=== PATIENT | male | born 1970 | race African-American/Black ===

== ENCOUNTER 2017-01-22 00:01 | Inpatient (IN) ==
[2017-01-22] MEDS ORDERED: *HR* HYDROcodone/Acet 5/325 mg TABLET PO ONE (00:56)
[2017-01-22] MEDS ORDERED: Ondansetron ODT 4 MG TAB.RAPDIS SL ONE (00:56)
[2017-01-22 01:20] LABS: Basophils # 0.1 K/mcL (0.0-0.2); Basophils % 0.3 %; Eosinophils % 0.1 %; Hematocrit 40.7 % (37.5-50.1); Hemoglobin 12.9 g/dL (12.9-16.9); Immature Granulocytes % 0.8 % (0-4); Immature Platelets 4.1 % (1.1-6.1); Lymphocytes # 0.6 K/mcL (0.6-4.6); Lymphocytes % 3.4 %; Mean Corpuscular HGB Conc 31.7 g/dL (31.6-35.5); Mean Corpuscular Hemoglobin 25.5 pg (28.0-33.3); Mean Corpuscular Volume 80.4 fL (83.0-100.0); Monocytes # 0.9 K/mcL (0.0-1.3); Monocytes % 5.3 %; Neutrophils # 15.5 K/mcL (1.6-8.9); Platelet Count 233 K/mcL (140-400); Red Blood Count 5.06 M/mcL (4.19-5.50); Red Cell Distribution Width 17.8 % (11.5-14.5); Segmented Neutrophils % 90.1 %
[2017-01-22 01:33] LABS: Calcium 8.9 mg/dL (8.6-10.8); Potassium 4.2 mEq/L (3.5-4.5)
[2017-01-22 01:35] LABS: Bilirubin,Urine Moderate (Negative); Blood,Urine Large (Negative); Clarity,Urine Turbid (Clear); Color,Urine Dark Yellow (Yellow); Glucose,Urine (UA) >=1000 mg/dL (Normal); Ketones,Urine Trace mg/dL (Negative); Leukocyte Esterase,Urine Large (Negative); Nitrite,Urine Positive (Negative); PH,Urine 5.5 pH Units (5.0-8.0); Protein,Urine 100 mg/dL (Neg-Trace); Specific Gravity,Urine 1.025 (1.010-1.025); Urobilinogen,Urine Normal (Normal)
[2017-01-22 01:42] LABS: Bacteria,Urine Many per hpf (None-Few); WBC,Urine TNTC per hpf (0-3)
[2017-01-22 01:43] LABS: RBC,Urine Present per hpf (0-3)
[2017-01-22 01:44] LABS: Squamous Epithelial Cell,Urine Present per lpf (None-Few)
[2017-01-22] MEDS ORDERED: 0.9 % Sodium Chloride 1,000 ML IVC ONE ×3 (02:55→05:20)
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
[2017-01-22] MEDS ORDERED: *HR* Morphine 2 MG/ML SYRINGE IVP ONE (03:31)
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
[2017-01-22] MEDS ORDERED: Naloxone 0.4 MG/ML INJ IVP PRN (05:18)
[2017-01-22] MEDS ORDERED: *HR* Promethazine 25 MG/ML VIAL IVP PRN ×2 (05:21→13:54)
[2017-01-22] MEDS ORDERED: D5% in Water 1,000 ML IVC PRN (05:22)
[2017-01-22] MEDS ORDERED: Dextrose Gel 15 GM PO PRN ×2 (05:22)
[2017-01-22] MEDS ORDERED: *HR* Dextrose 50 % in Water (Syg) 50 ML SYRINGE IVP PRN (05:22)
[2017-01-22] MEDS ORDERED: 0.9 % Sodium Chloride 1,000 ML IVC SCH ×3 (05:30→16:02)
[2017-01-22] MEDS ORDERED: *HR* Heparin 5,000 UNIT/ML VIAL SQ SCH (06:00)
[2017-01-22] MEDS: Insulin LISPRO 300 UNITS/3 ML VIAL SQ SCH ×5 (07:09→20:52)
[2017-01-22] MEDS: Gabapentin 300 MG CAPSULE PO SCH ×2 (07:46→20:51)
[2017-01-22] MEDS: *HR* OxyCODONE/APAP 10/325 TABLET PO PRN ×3 (08:01→20:54)
[2017-01-22] MEDS ORDERED: *HR* Rivaroxaban 15 MG TABLET PO SCH (09:00)
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
[2017-01-22] MEDS ORDERED: 0.9 % Sodium Chloride 500 ML IVC ONE ×2 (14:27→15:15)
[2017-01-22] MEDS ORDERED: 0.9 % Sodium Chloride 500 ML ONE (14:27)
[2017-01-22] MEDS: *HR* Promethazine 25 MG/ML VIAL IVP PRN (15:25)
--- NOTE | 2017-01-22 20:04 | Event Note ---
Date of Encounter: 01/22/17 Time of Encounter: 20:03 Called due to E. coli in blood x 2. - Vitals noted, no hypotension. On ceftriaxone, continue.
[2017-01-22 20:21] LABS: Acinetobacter baumannii by PCR Not Detected (Not Detect); Candida albicans by PCR Not Detected (Not Detect); Candida glabrata by PCR Not Detected (Not Detect); Candida krusei by PCR Not Detected (Not Detect); Candida parapsilosis by PCR Not Detected (Not Detect); Candida tropicalis by PCR Not Detected (Not Detect); Enterococcus by PCR Not Detected (Not Detect); Escherichia coli by PCR ***DETECTED*** (Not Detect); Klebsiella oxytoca by PCR Not Detected (Not Detect); Klebsiella pneumoniae by PCR Not Detected (Not Detect); Pseudomonas aeruginosa by PCR Not Detected (Not Detect); Serratia marcescens by PCR Not Detected (Not Detect); Staphylococcus aureus by PCR Not Detected (Not Detect); Streptococcus agalactiae(B)PCR Not Detected (Not Detect); Streptococcus by PCR Not Detected (Not Detect); Streptococcus pneumoniae PCR Not Detected (Not Detect); Streptococcus pyogenes (A) PCR Not Detected (Not Detect); blaKPC Carbapenem-Resist Gene Not Detected (Not Detect); mecA Methicillin-Resist Gene Not Detected (Not Detect); vanA/B Vancomycin-Resist Genes Not Detected (Not Detect)
[2017-01-22] MEDS: 0.9 % Sodium Chloride 1,000 ML IVC SCH (21:09)
[2017-01-23] MEDS: *HR* Morphine 2 MG/ML SYRINGE IVP PRN ×2 (00:35→19:43)
[2017-01-23] MEDS: Acetaminophen 325 MG TABLET PO PRN ×2 (04:24→20:42)
[2017-01-23 04:51] LABS: Basophils % 0.2 %; Eosinophils % 0.3 %; Hematocrit 41.8 % (37.5-50.1); Hemoglobin 13.1 g/dL (12.9-16.9); Immature Granulocytes % 0.5 % (0-4); Lymphocytes # 0.7 K/mcL (0.6-4.6); Lymphocytes % 6.1 %; Mean Corpuscular HGB Conc 31.3 g/dL (31.6-35.5); Mean Corpuscular Hemoglobin 25.4 pg (28.0-33.3); Mean Corpuscular Volume 81.2 fL (83.0-100.0); Mean Platelet Volume 11.2 fL (9.4-12.4); Monocytes # 0.6 K/mcL (0.0-1.3); Monocytes % 5.4 %; Neutrophils # 10.4 K/mcL (1.6-8.9); Platelet Count 192 K/mcL (140-400); Red Blood Count 5.15 M/mcL (4.19-5.50); Red Cell Distribution Width 18.2 % (11.5-14.5); Segmented Neutrophils % 87.5 %
[2017-01-23 05:08] LABS: Alanine Aminotransferase 43 Units/L (0-55); Albumin 2.4 g/dL (3.5-5.0); Albumin/Globulin Ratio 0.5 (1.1-2.2); Alkaline Phosphatase 100 Units/L (38-126); Aspartate Amino Transferase 61 Units/L (5-34); BUN/Creatinine Ratio 23 (6-26); Bilirubin,Total 0.7 mg/dL (0.2-1.2); Blood Urea Nitrogen 34 mg/dL (8-26); Calcium 8.5 mg/dL (8.6-10.8); Carbon Dioxide 15 mEq/L (19-29); Chloride 109 mEq/L (98-109); Globulin 4.8 g/dL (2.4-3.5); Glucose 132 mg/dL (70-99); Magnesium 1.6 mg/dL (1.6-2.6); Osmolality,Calculated 291 (280-300); Phosphorous 3.1 mg/dL (2.3-4.7); Sodium 136 mEq/L (136-145); Total Protein 7.2 g/dL (6.0-8.3); eGFR For African Americans > 60 (> 60); eGFR For Non-African Americans 50 (> 60)
[2017-01-23 05:11] LABS: Potassium 5.5 mEq/L (3.5-4.5)
[2017-01-23] MEDS: 0.9 % Sodium Chloride 1,000 ML IVC SCH ×2 (05:20→15:10)
[2017-01-23] MEDS ORDERED: 0.9 % Sodium Chloride 1,000 ML IVC ONE (05:34)
[2017-01-23] MEDS: Gabapentin 300 MG CAPSULE PO SCH ×2 (09:02→20:42)
[2017-01-23] MEDS: Insulin LISPRO 300 UNITS/3 ML VIAL SQ SCH ×4 (09:02→21:30)
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
[2017-01-23 18:07] LABS: BUN/Creatinine Ratio 21 (6-26); Blood Urea Nitrogen 32 mg/dL (8-26); Calcium 8.4 mg/dL (8.6-10.8); Carbon Dioxide 20 mEq/L (19-29); Chloride 109 mEq/L (98-109); Glucose 136 mg/dL (70-99); Osmolality,Calculated 293 (280-300); Sodium 137 mEq/L (136-145); eGFR For African Americans > 60 (> 60); eGFR For Non-African Americans 51 (> 60)
[2017-01-23 18:14] LABS: Potassium 4.2 mEq/L (3.5-4.5)
[2017-01-23] MEDS: *HR* Promethazine 25 MG/ML VIAL IVP PRN (19:51)
[2017-01-23] MEDS ORDERED: Ibuprofen 600 MG TABLET PO ONE (22:05)
[2017-01-24] MEDS: 0.9 % Sodium Chloride 1,000 ML IVC SCH (00:10)
[2017-01-24 06:20] LABS: Basophils % 0.3 %; Eosinophils # 0.1 K/mcL (0.0-0.6); Eosinophils % 0.5 %; Hematocrit 36.5 % (37.5-50.1); Hemoglobin 11.7 g/dL (12.9-16.9); Immature Granulocytes % 0.4 % (0-4); Lymphocytes # 1.1 K/mcL (0.6-4.6); Lymphocytes % 9.9 %; Mean Corpuscular HGB Conc 32.1 g/dL (31.6-35.5); Mean Corpuscular Hemoglobin 26.1 pg (28.0-33.3); Mean Corpuscular Volume 81.5 fL (83.0-100.0); Neutrophils # 8.8 K/mcL (1.6-8.9); Platelet Count 195 K/mcL (140-400); Red Blood Count 4.48 M/mcL (4.19-5.50); Red Cell Distribution Width 18.7 % (11.5-14.5); Segmented Neutrophils % 79.9 %
[2017-01-24 06:44] LABS: BUN/Creatinine Ratio 21 (6-26); Blood Urea Nitrogen 31 mg/dL (8-26); Calcium 8.2 mg/dL (8.6-10.8); Carbon Dioxide 19 mEq/L (19-29); Chloride 107 mEq/L (98-109); Glucose 133 mg/dL (70-99); Osmolality,Calculated 288 (280-300); Potassium 4.1 mEq/L (3.5-4.5); Sodium 135 mEq/L (136-145); eGFR For African Americans > 60 (> 60); eGFR For Non-African Americans 52 (> 60)
[2017-01-24] MEDS: Insulin LISPRO 300 UNITS/3 ML VIAL SQ SCH ×2 (07:30→11:51)
[2017-01-24] MEDS: Gabapentin 300 MG CAPSULE PO SCH (08:56)
[2017-01-24] MEDS: *HR* OxyCODONE/APAP 10/325 TABLET PO PRN (11:43)
--- NOTE | 2017-01-24 11:48 | Internal Med Progress Note ---
Date of Encounter: 01/24/17 Time of Encounter: 11:48 - Constitutional Vitals: Temp Pulse Resp BP Pulse Ox 98.3 F 107 18 111/70 94 01/24/17 10:41 01/24/17 10:41 01/24/17 10:41 01/24/17 10:41 01/24/17 10:41 General appearance: Present: A&O X 3, pleasant, obese, answers questions appropriately Internal Medicine: Result - Labs CBC & Chem 7: 01/24/17 05:19 01/24/17 05:19 Labs: Short CBC 01/24/17 Range/Units 05:19 WBC 11.0 (4.3-11.1) K/mcL Hgb 11.7 L (12.9-16.9) g/dL Hct 36.5 L (37.5-50.1) % Plt Count 195 (140-400) K/mcL Neutrophils # 8.8 (1.6-8.9) K/mcL BMP 01/23/17 01/24/17 17:30 05:19 Sodium 137 135 L Potassium 4.2 D 4.1 Chloride 109 107 Carbon Dioxide 20 19 BUN 32 H 31 H Creatinine 1.49 H 1.45 H Glucose 136 H 133 H Calcium 8.4 L 8.2 L Consult Discharge Plan - Plan Referrals: Leida Floyd MD [Non-Partnered Physician] -
[2017-01-24] MEDS ORDERED: Acetaminophen 325 MG TABLET PO PRN (11:59)
[2017-01-24] MEDS ORDERED: *HR* OxyCODONE/APAP 10/325 TABLET PO PRN (12:00)
[2017-01-24 14:47] VITALS: BP 106/70
--- NOTE | 2017-01-24 16:09 | Discharge Summary ---
Date of Encounter: 01/24/17 Time of Encounter: 10:15 - Discharge Diagnosis (1) Sepsis Priority: Primary Status: Acute Comments: Sepsis present on admission secondary to UTI - now improved Patient has been on IV fluids and IV Rocephin Urine culture and blood culture initially positive for pansensitive Escherichia coli Repeat blood cultures - no growth Discharged home on Levaquin Advised to follow-up with primary care physician, advised to return if symptoms worsen Qualifiers: Sepsis type: sepsis due to unspecified organism Qualified Code(s): A41.9 - Sepsis, unspecified organism (2) UTI (urinary tract infection) Priority: Primary Status: Acute Comments: UTI present on admission, blood culture and urine culture positive for pansensitive Escherichia coli Being discharged on Levaquin Qualifiers: Urinary tract infection type: acute cystitis Hematuria presence: with hematuria Qualified Code(s): N30.01 - Acute cystitis with hematuria (3) SHE (acute kidney injury) Priority: Primary Status: Acute Comments: Acute kidney injury secondary to sepsis - now improved Advised good by mouth fluid intake (4) Hypertension Priority: Secondary Status: Chronic Comments: Essential hypertension, controlled, monitor, continue home meds Qualifiers: Hypertension type: essential hypertension Qualified Code(s): I10 - Essential (primary) hypertension (5) Deep venous thrombosis of right upper extremity Priority: Secondary Status: Chronic Comments: History of DVT of right upper extremity Continue anticoagulation with Xarelto Qualifiers: Affected thrombotic vein of extremity: other upper extremity vein Chronicity: chronic Qualified Code(s): I82.721 - 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 (6) Morbid obesity Priority: Secondary Status: Chronic Comments: BMI 46.7, advised weight loss (7) Tobacco abuse Priority: Secondary Status: Chronic Comments: Counseled about cessation, nicotine patch (8) COPD (chronic obstructive pulmonary disease) Priority: Secondary Status: Chronic Comments: Stable, not in exacerbation Prescription for DuoNeb and nebulizer machine given, advised to use it as needed Qualifiers: COPD type: unspecified COPD Qualified Code(s): J44.9 - Chronic obstructive pulmonary disease, unspecified - Discharge Medications Prescriptions: Ipratropium/Albuterol Neb [Duoneb] 3 ml IH Q4HR PRN #30 vial.neb PRN Reason: Shortness Of Breath/Wheezing OxyCODONE/APAP 10/325 [Percocet 10/325 MG] 1 each PO Q6HR PRN #10 tab PRN Reason: Moderate Pain Aspirin Enteric Coated [Aspirin EC] 81 mg PO DAILY #30 tablet. Levofloxacin [Levaquin] 750 mg PO DAILY #10 tablet Nicotine Patch [Nicoderm] 21 mg TD DAILY #30 patch.td24 Home Medications: Atorvastatin Calcium [Lipitor] 20 mg PO QPM 12/15/15 [History] Lisinopril/Hydrochlorothiazide [Zestoretic 20-25 mg Tablet] 1 tab PO DAILY 12/14 [History] Canagliflozin/Metformin HCl [Invokamet 150-1,000 mg Tablet] 1 tab PO BID [History] GlipiZIDE [Glipizide Xl] 5 mg PO DAILY 01/22/17 [History] Insulin Glargine,Hum.rec.anlog [Toujeo Solostar] 60 unit SQ BID 01/22/17 [ History] Liraglutide [Victoza 2-Sea] 1.8 mg SQ DAILY 01/22/17 [History] Pregabalin [Lyrica] 100 mg PO TID 01/22/17 [History] Aspirin Enteric Coated [Aspirin EC] 81 mg PO DAILY #30 tablet. 01/24/17 [Rx] Gabapentin [Neurontin] 300 mg PO BID 01/24/17 [Rx] Ipratropium/Albuterol Neb [Duoneb] 3 ml IH Q4HR PRN #30 vial.neb 01/24/17 [Rx] Levofloxacin [Levaquin] 750 mg PO DAILY #10 tablet 01/24/17 [Rx] Nicotine Patch [Nicoderm] 21 mg TD DAILY #30 patch.td24 01/24/17 [Rx] OxyCODONE/APAP 10/325 [Percocet 10/325 MG] 1 each PO Q6HR PRN #10 tab 01/24/17 [ Rx] Allergies/Adverse Reactions: 3 Allergy/AdvReac Type Severity Reaction Status Date / Time vancomycin Allergy Severe Anaphylaxis Verified 12/13/15 23:16 ondansetron Allergy Anaphylaxis Verified 06/23/16 00:18 [From Zofran (as hydrochloride)] piperacillin [From Zosyn] Allergy Anaphylaxis Verified 12/13/15 23:16 tazobactam [From Zosyn] Allergy Anaphylaxis Verified 12/13/15 23:16 Date of admission: 01/22/17 06:43 Primary care physician: PCP NONE Anticipated date of discharge: 01/24/17 - Patient Status Disposition: Home, Self-Care Condition: Good Overall status at discharge: patient is back to baseline - Discharge Instructions Instructions: Levofloxacin (By mouth), Urinary Tract Infection in Men (DC) Follow Up With: Leida Floyd MD [Non-Partnered Physician] - - Diet and Activity Activity: increase activity as tolerated, resume usual activities as tolerated Diet: low fat, low cholesterol, other (diabetic diet) Hospital course: Mr. Rushing is a 46 year old male with past medical history of diabetes, hyperlipidemia, hypertension, venous stasis and history of DVT. He presents to the ED with complaints of dysuria and nausea and vomiting. Patient was admitted for bilateral flank pain, fevers, chills or nausea. He was found to have sepsis secondary to urinary tract infection. He also had acute kidney injury likely due to sepsis. Patient was started on empiric IV Rocephin and also was on IV fluids. Symptoms slowly improved. His white count is now come down to 11,000. His creatinine is now 1.45. Patient has responded well to IV fluids and IV antibiotics. His sepsis has now improved and his urine cultures are positive for pansensitive Escherichia coli. Initial blood cultures were also positive for Escherichia coli and repeat blood cultures did not show any growth. Patient is being discharged home on Levaquin. Patient was offered one more day stay in the hospital. His also stated that she would like him to stay 1 more day. The patient has now refused to stay. He wants to be discharged home. Patient states he feels better and wants to go home. Patient is tolerating oral diet well and ambulating using a cane. Patient states he no longer takes Xaelto. No other acute events or complications during his stay in the hospital. Patient has been advised about smoking cessation. He has also been advised to return if symptoms worsen. Patient is being discharged in a stable condition. Time spent discussing smoking cessation with patient: 3 to 10 minutes - Time Spent with Patient Total time spent providing and/or coordinating discharge services: Less than 30 minutes - Constitutional Vitals: Temp Pulse Resp BP Pulse Ox 98.5 F 98 17 106/70 93 01/24/17 14:46 01/24/17 14:46 01/24/17 14:46 01/24/17 14:46 01/24/17 14:46 General appearance: Present: A&O X 3, morbidly obese, pleasant, no acute distress, answers questions appropriately - Head Head exam: Present: atraumatic - Eye Eye exam: Present: EOMI - ENT ENT exam: Present: mucous membranes moist - Respiratory Respiratory exam: Present: CTAB. Absent: rales, rhonchi, wheezes, tachypnea - Cardiovascular Cardiovascular exam: Present: RRR, +S1, +S2 - GI/Abdominal GI/Abdominal exam: Present: distended (Obese), soft. Absent: firm, guarding, tenderness - Extremities Exam Extremities exam: Present: pedal edema (Mild bilateral), radial pulses palpable and symmetrical. Absent: cyanotic - Neurological Exam Neurological exam: Present: alert, oriented X3, no focal deficits. Absent: facial droop, speech deficit
== END 2017-01-24 18:44 | disposition home or self-care (01) | DRG 872 ==
LOC: 3NENU 00:01 → EMEROO 00:01 → 3NENU 04:27 → SUATTDRO 06:43 → 3NENU 12:24 → 3ANU 01-23 10:33
PROVIDERS: ADMIT Internal Medicine; ATTEND Family Medicine

== ENCOUNTER 2020-03-15 22:14 | Inpatient (IN) ==
[2020-03-15 23:09] LABS: Bacteria,Urine Few per hpf (None-Few); Bilirubin,Urine Negative (Negative); Blood,Urine Moderate (Negative); Budding Yeast,Urine Few per hpf (None Seen); Clarity,Urine Clear (Clear); Color,Urine Light-Yellow (Yellow); Glucose,Urine (UA) 200 mg/dL (Normal); Ketones,Urine Negative (Negative); Leukocyte Esterase,Urine Moderate (Negative); Mucus,Urine Few per lpf (None-Few); Nitrite,Urine Positive (Negative); Protein,Urine >=300 mg/dL (Neg-Trace); RBC,Urine 15-30 per hpf (0-3); Squamous Epithelial Cell,Urine Few per hpf (None-Few); Urobilinogen,Urine Normal (Normal); WBC,Urine 30-50 per hpf (0-3)
[2020-03-16] MEDS ORDERED: levoFLOXacin 750 MG/150 ML 750 MG/150 ML BAG IVPB ONE (00:19)
[2020-03-16] MEDS ORDERED: 0.9 % Sodium Chloride 1,000 ML IVC ONE ×2 (00:19→04:47)
[2020-03-16 01:15] LABS: Basophils # 0.1 K/mcL (0.0-0.2); Basophils % 0.5 %; Eosinophils # 0.3 K/mcL (0.0-0.6); Hemoglobin 13.2 g/dL (12.9-16.9); Immature Granulocytes % 0.4 % (0-4); Lymphocytes % 15.5 %; Mean Corpuscular HGB Conc 30.7 g/dL (31.6-35.5); Mean Corpuscular Hemoglobin 24.9 pg (28.0-33.3); Mean Platelet Volume 9.8 fL (9.4-12.4); Monocytes # 0.8 K/mcL (0.0-1.3); Monocytes % 5.7 %; Platelet Count 224 K/mcL (140-400); Red Blood Count 5.31 M/mcL (4.19-5.50); Red Cell Distribution Width 18.1 % (11.5-14.5); Segmented Neutrophils % 75.9 %; White Blood Count 13.1 K/mcL (4.3-11.1)
[2020-03-16 01:42] LABS: Albumin 3.2 g/dL (3.5-5.7); Albumin/Globulin Ratio 0.9 (1.1-2.2); Bilirubin,Total 0.4 mg/dL (0.3-1.0); Calcium 9.1 mg/dL (8.6-10.3); Globulin 3.7 g/dL (2.4-3.5); Potassium 4.3 mEq/L (3.5-5.1); Total Protein 6.9 g/dL (6.4-8.9)
[2020-03-16] MEDS ORDERED: Morphine Sulfate 2 MG/ML SYRINGE IVP ONE (01:46)
[2020-03-16] MEDS ORDERED: Naloxone 0.4 MG/ML INJ IVP PRN ×2 (04:45→18:37)
[2020-03-16] MEDS ORDERED: Nicotine 21 MG PATCH.TD24 TD PRN ×2 (07:10→18:37)
[2020-03-16] MEDS ORDERED: *HR* Dextrose 50 % in Water (Vial) 50 ML VIAL IVP PRN ×2 (07:13→18:37)
[2020-03-16] MEDS ORDERED: D5% in Water 1,000 ML IVC PRN ×2 (07:13→18:37)
[2020-03-16] MEDS ORDERED: Dextrose Gel 15 GM/37.5 ML TUBE PO PRN ×4 (07:13→18:37)
[2020-03-16] MEDS ORDERED: 0.9 % Sodium Chloride 1,000 ML IVC SCH (09:45)
[2020-03-16] MEDS: Pregabalin 50 MG CAPSULE PO SCH ×3 (10:16→20:36)
[2020-03-16 10:45] LABS: Calcium 8.4 mg/dL (8.6-10.3); Potassium 4.2 mEq/L (3.5-5.1)
[2020-03-16] MEDS: Insulin LISPRO 300 UNITS/3 ML VIAL SQ SCH ×3 (11:50→23:39)
[2020-03-16] MEDS ORDERED: *HR* FentaNYL (PF) 100 MCG/2 ML VIAL ONE ×2 (16:37→16:42)
[2020-03-16] MEDS ORDERED: *HR* Propofol 200 MG/20 ML VIAL IVP ONE (16:38)
[2020-03-16] MEDS ORDERED: Lidocaine -MPF 4% 5 ML AMPUL ONE (16:39)
[2020-03-16] MEDS ORDERED: Lidocaine -MPF 2% 2 ML VIAL ONE (16:39)
[2020-03-16] MEDS ORDERED: Ondansetron 4 MG/2 ML VIAL ONE (16:39)
[2020-03-16] MEDS ORDERED: *HR* Succinylcholine 200 MG/10 ML VIAL IVP ONE (16:39)
[2020-03-16] MEDS ORDERED: Dexamethasone 4 MG/ML VIAL ONE (16:39)
[2020-03-16] MEDS ORDERED: Isovue-300 50ML VIAL ONE (16:43)
[2020-03-16] MEDS ORDERED: Clindamycin 900 MG/50 ML 900 MG/50 ML IV.SOLN IVPB ONE (17:04)
[2020-03-16] MEDS ORDERED: Ondansetron 4 MG/2 ML VIAL IVP PRN ×2 (17:20→18:37)
[2020-03-16] MEDS ORDERED: *HR* HYDROmorphone PF 0.5 MG/0.5 ML SYRINGE IVP PRN ×2 (17:20→18:37)
[2020-03-16] MEDS ORDERED: *HR* OxyCODONE Immed Rel 5 MG TABLET PO PRN ×2 (17:20→18:37)
[2020-03-16] MEDS ORDERED: *HR* Promethazine 25 MG/ML VIAL IVP PRN ×2 (17:20→18:37)
[2020-03-16] MEDS ORDERED: *HR* Heparin 5,000 UNIT/ML VIAL SQ SCH (18:00)
[2020-03-16] MEDS: Insulin DETEMIR 100 UNIT/ML X5UNITS SQ SCH (20:36)
[2020-03-16] MEDS ORDERED: Insulin DETEMIR 100 UNIT/ML X5UNITS SQ SCH (21:00)
[2020-03-16] MEDS: 0.9 % Sodium Chloride 1,000 ML IVC SCH (22:13)
[2020-03-17] MEDS ORDERED: Insulin LISPRO 300 UNITS/3 ML VIAL SQ ONE (01:11)
[2020-03-17 01:21] LABS: Monocytes % 0.9 %
[2020-03-17 01:23] LABS: Basophils % 0.1 %; Hematocrit 47.1 % (37.5-50.1); Hemoglobin 13.6 g/dL (12.9-16.9); Immature Granulocytes % 0.6 % (0-4); Immature Platelets 9.5 % (1.1-6.1); Lymphocytes # 0.6 K/mcL (0.6-4.6); Lymphocytes % 4.5 %; Mean Corpuscular HGB Conc 28.9 g/dL (31.6-35.5); Mean Corpuscular Hemoglobin 23.9 pg (28.0-33.3); Mean Corpuscular Volume 82.6 fL (83.0-100.0); Mean Platelet Volume 10.9 fL (9.4-12.4); Monocytes # 0.1 K/mcL (0.0-1.3); Neutrophils # 12.6 K/mcL (1.6-8.9); Platelet Count 172 K/mcL (140-400); Red Cell Distribution Width 19.4 % (11.5-14.5); Segmented Neutrophils % 93.9 %; White Blood Count 13.4 K/mcL (4.3-11.1)
[2020-03-17 02:03] LABS: Calcium 8.6 mg/dL (8.6-10.3); Phosphorous 3.1 mg/dL (2.7-4.5); Potassium 5.2 mEq/L (3.5-5.1)
[2020-03-17] MEDS ORDERED: Insulin Human Regular 10 UNIT in 0.9 % Sodium Chloride 10 ML IV ONE (02:27)
[2020-03-17] MEDS: *HR* Heparin 5,000 UNIT/ML VIAL SQ SCH ×2 (05:39→16:49)
[2020-03-17] MEDS: Insulin LISPRO 300 UNITS/3 ML VIAL SQ SCH ×7 (05:40→20:04)
[2020-03-17] MEDS: 0.9 % Sodium Chloride 1,000 ML IVC SCH ×3 (06:39→19:56)
[2020-03-17] MEDS: Insulin DETEMIR 100 UNIT/ML X5UNITS SQ SCH ×2 (08:23→20:05)
[2020-03-17] MEDS: levoFLOXacin 750 MG/150 ML 750 MG/150 ML BAG IVPB SCH (08:23)
[2020-03-17] MEDS: Pregabalin 50 MG CAPSULE PO SCH ×3 (08:23→20:04)
[2020-03-17] MEDS ORDERED: levoFLOXacin 750 MG/150 ML 750 MG/150 ML BAG IVPB SCH (09:00)
[2020-03-17] MEDS: Budesonide/Formoterol 160/4.5 1 PUFF INH IH SCH ×2 (09:55→21:30)
[2020-03-17 10:05] LABS: Calcium 8.2 mg/dL (8.6-10.3); Magnesium 1.8 mg/dL (1.6-2.6); Phosphorous 2.9 mg/dL (2.7-4.5); Potassium 4.3 mEq/L (3.5-5.1)
[2020-03-17] MEDS: amLODIPine 5 MG TABLET PO SCH (10:09)
[2020-03-17] MEDS ORDERED: Insulin DETEMIR 100 UNIT/ML X5UNITS SQ ONE (11:20)
[2020-03-17 14:38] LABS: Estimated Average Glucose 283 mg/dl
[2020-03-18] MEDS: Insulin LISPRO 300 UNITS/3 ML VIAL SQ SCH ×4 (00:14→08:24)
[2020-03-18] MEDS: 0.9 % Sodium Chloride 1,000 ML IVC SCH (04:18)
[2020-03-18 05:17] LABS: Basophils % 0.4 %; Eosinophils # 0.1 K/mcL (0.0-0.6); Hematocrit 39.8 % (37.5-50.1); Hemoglobin 12.4 g/dL (12.9-16.9); Immature Granulocytes % 0.6 % (0-4); Lymphocytes % 20.4 %; Mean Corpuscular HGB Conc 31.2 g/dL (31.6-35.5); Mean Corpuscular Hemoglobin 25.2 pg (28.0-33.3); Mean Corpuscular Volume 80.7 fL (83.0-100.0); Mean Platelet Volume 9.8 fL (9.4-12.4); Monocytes # 0.6 K/mcL (0.0-1.3); Monocytes % 6.1 %; Neutrophils # 7.2 K/mcL (1.6-8.9); Platelet Count 238 K/mcL (140-400); Red Blood Count 4.93 M/mcL (4.19-5.50); Red Cell Distribution Width 18.1 % (11.5-14.5); Segmented Neutrophils % 71.5 %
[2020-03-18] MEDS: *HR* Heparin 5,000 UNIT/ML VIAL SQ SCH (05:20)
[2020-03-18 05:55] LABS: Magnesium 1.8 mg/dL (1.6-2.6); Phosphorous 2.9 mg/dL (2.7-4.5)
[2020-03-18] MEDS: Budesonide/Formoterol 160/4.5 1 PUFF INH IH SCH (07:54)
[2020-03-18] MEDS: amLODIPine 5 MG TABLET PO SCH (08:00)
[2020-03-18] MEDS: Pregabalin 50 MG CAPSULE PO SCH (08:10)
[2020-03-18] MEDS: levoFLOXacin 750 MG/150 ML 750 MG/150 ML BAG IVPB SCH (08:11)
[2020-03-18] MEDS: Insulin DETEMIR 100 UNIT/ML X5UNITS SQ SCH (08:39)
[2020-03-18 11:20] VITALS: BP 134/74
== END 2020-03-18 12:46 | disposition home or self-care (01) | DRG 660 ==
LOC: EMEROOARM 22:14 → 3BNU 22:14 → SUATTDRO 03-16 03:50 → 3BNU 03-16 04:30
PROVIDERS: ADMIT Internal Medicine; ATTEND Internal Medicine

== ENCOUNTER 2020-04-03 15:51 | Inpatient (IN) ==
[2020-04-03] MEDS ORDERED: 0.9 % Sodium Chloride 1,000 ML IVC ONE (16:48)
[2020-04-03 16:55] LABS: Bacteria,Urine Few per hpf (None-Few); Bilirubin,Urine Negative (Negative); Blood,Urine Moderate (Negative); Budding Yeast,Urine Few per hpf (None Seen); Clarity,Urine Turbid (Clear); Color,Urine Yellow (Yellow); Glucose,Urine (UA) 100 mg/dL (Normal); Ketones,Urine Negative (Negative); Leukocyte Esterase,Urine Large (Negative); Mucus,Urine Few per lpf (None-Few); Nitrite,Urine Negative (Negative); Protein,Urine 200 mg/dL (Neg-Trace); RBC,Urine 15-30 per hpf (0-3); Specific Gravity,Urine 1.014 (1.010-1.025); Squamous Epithelial Cell,Urine Few per hpf (None-Few); Urobilinogen,Urine Normal (Normal); WBC,Urine TNTC per hpf (0-3)
[2020-04-03 16:58] LABS: Basophils # 0.1 K/mcL (0.0-0.2); Basophils % 0.4 %; Eosinophils # 0.2 K/mcL (0.0-0.6); Eosinophils % 1.9 %; Hematocrit 40.7 % (37.5-50.1); Hemoglobin 12.5 g/dL (12.9-16.9); Immature Granulocytes % 0.5 % (0-4); Lymphocytes # 1.7 K/mcL (0.6-4.6); Lymphocytes % 13.2 %; Mean Corpuscular HGB Conc 30.7 g/dL (31.6-35.5); Mean Corpuscular Hemoglobin 24.2 pg (28.0-33.3); Mean Corpuscular Volume 78.9 fL (83.0-100.0); Mean Platelet Volume 9.5 fL (9.4-12.4); Monocytes # 0.7 K/mcL (0.0-1.3); Monocytes % 5.4 %; Platelet Count 303 K/mcL (140-400); Red Blood Count 5.16 M/mcL (4.19-5.50); Red Cell Distribution Width 18.2 % (11.5-14.5); Segmented Neutrophils % 78.6 %; White Blood Count 12.7 K/mcL (4.3-11.1)
[2020-04-03 17:17] LABS: BUN/Creatinine Ratio 16 (6-26); Blood Urea Nitrogen 29 mg/dL (6-20); Calcium 8.7 mg/dL (8.6-10.3); Carbon Dioxide 24 mEq/L (23-29); Chloride 101 mEq/L (98-107); Glucose 315 mg/dL (70-105); Osmolality,Calculated 294 (280-300); Potassium 3.7 mEq/L (3.5-5.1); Sodium 133 mEq/L (136-145); eGFR For African Americans 47 (> 60); eGFR For Non-African Americans 39 (> 60)
[2020-04-03 17:27] LABS: Troponin I < 0.03 ng/mL (< 0.04)
[2020-04-03] MEDS ORDERED: LEVOFLOXACIN 750 MG/150 ML IVPB ONE (18:00)
[2020-04-03] MEDS ORDERED: Morphine Sulfate 2 MG/ML SYRINGE IVP ONE (18:37)
[2020-04-03] MEDS ORDERED: Ondansetron ODT 4 MG TAB.RAPDIS SL PRN (20:58)
[2020-04-03] MEDS ORDERED: Naloxone 0.4 MG/ML INJ IVP PRN (20:58)
[2020-04-03] MEDS ORDERED: Acetaminophen 325 MG TABLET PO PRN (20:58)
[2020-04-03] MEDS ORDERED: Dextrose Gel 15 GM/37.5 ML TUBE PO PRN ×2 (21:03)
[2020-04-03] MEDS ORDERED: D5% in Water 1,000 ML IVC PRN (21:03)
[2020-04-03] MEDS ORDERED: *HR* Dextrose 50 % in Water (Vial) 50 ML VIAL IVP PRN (21:03)
[2020-04-03] MEDS: Morphine Sulfate 2 MG/ML SYRINGE IVP PRN (23:52)
[2020-04-03] MEDS: Insulin LISPRO 300 UNITS/3 ML VIAL SQ SCH (23:57)
[2020-04-04] MEDS: *HR* Heparin 5,000 UNIT/ML VIAL SQ SCH ×4 (00:01→21:25)
[2020-04-04 02:34] LABS: Hematocrit 38.3 % (37.5-50.1); Hemoglobin 11.8 g/dL (12.9-16.9); Mean Corpuscular HGB Conc 30.8 g/dL (31.6-35.5); Mean Corpuscular Hemoglobin 24.9 pg (28.0-33.3); Mean Corpuscular Volume 80.8 fL (83.0-100.0); Mean Platelet Volume 9.9 fL (9.4-12.4); Platelet Count 270 K/mcL (140-400); Red Blood Count 4.74 M/mcL (4.19-5.50); Red Cell Distribution Width 18.1 % (11.5-14.5)
[2020-04-04 02:46] LABS: INR 1.2; Prothrombin Time 13.8 Seconds (9.4-12.1)
[2020-04-04 02:54] LABS: Calcium 8.1 mg/dL (8.6-10.3); Magnesium 1.9 mg/dL (1.6-2.6); Phosphorous 3.2 mg/dL (2.7-4.5); Potassium 3.5 mEq/L (3.5-5.1)
[2020-04-04] MEDS: Morphine Sulfate 2 MG/ML SYRINGE IVP PRN (05:09)
[2020-04-04] MEDS: Insulin LISPRO 300 UNITS/3 ML VIAL SQ SCH ×4 (10:05→21:25)
[2020-04-04] MEDS: amLODIPine 5 MG TABLET PO SCH ×2 (10:06→21:23)
[2020-04-04] MEDS: Insulin DETEMIR 100 UNIT/ML X5UNITS SQ SCH ×2 (10:06→21:25)
[2020-04-04] MEDS: 0.9 % Sodium Chloride 1,000 ML IVC SCH ×3 (10:06→21:24)
[2020-04-04] MEDS: Pregabalin 50 MG CAPSULE PO SCH ×3 (10:06→21:23)
[2020-04-04] MEDS: Budesonide/Formoterol 160/4.5 1 PUFF INH IH SCH ×2 (10:41→21:44)
[2020-04-04] MEDS: *HR* OxyCODONE Immed Rel 5 MG TABLET PO PRN ×2 (11:44→18:44)
[2020-04-04] MEDS: levoFLOXacin 750 MG/150 ML 750 MG/150 ML BAG IVPB SCH (18:45)
[2020-04-04] MEDS ORDERED: (Semaglutide [Ozempic] 0.5 MG) SQ SCH (23:00)
[2020-04-05] MEDS: *HR* OxyCODONE Immed Rel 5 MG TABLET PO PRN ×4 (01:25→22:11)
[2020-04-05] MEDS: *HR* Heparin 5,000 UNIT/ML VIAL SQ SCH ×3 (05:17→20:59)
[2020-04-05] MEDS: Budesonide/Formoterol 160/4.5 1 PUFF INH IH SCH ×2 (08:06→22:16)
[2020-04-05] MEDS: Insulin DETEMIR 100 UNIT/ML X5UNITS SQ SCH ×2 (08:39→20:57)
[2020-04-05] MEDS: Insulin LISPRO 300 UNITS/3 ML VIAL SQ SCH ×4 (08:39→21:01)
[2020-04-05] MEDS: 0.9 % Sodium Chloride 1,000 ML IVC SCH ×2 (08:40→16:15)
[2020-04-05] MEDS: Pregabalin 50 MG CAPSULE PO SCH ×3 (08:40→20:58)
[2020-04-05] MEDS: amLODIPine 5 MG TABLET PO SCH ×2 (08:40→20:58)
[2020-04-05] MEDS: *HR* HYDROcodone/Acet 5/325 mg TABLET PO PRN (13:17)
[2020-04-06 05:03] LABS: Calcium 8.3 mg/dL (8.6-10.3); Potassium 4.1 mEq/L (3.5-5.1)
[2020-04-06] MEDS: *HR* OxyCODONE Immed Rel 5 MG TABLET PO PRN ×2 (05:13→12:00)
[2020-04-06] MEDS: 0.9 % Sodium Chloride 1,000 ML IVC SCH ×2 (05:14→21:21)
[2020-04-06] MEDS: *HR* Heparin 5,000 UNIT/ML VIAL SQ SCH ×3 (05:14→21:19)
[2020-04-06] MEDS: Budesonide/Formoterol 160/4.5 1 PUFF INH IH SCH ×2 (07:18→20:12)
[2020-04-06] MEDS: Insulin LISPRO 300 UNITS/3 ML VIAL SQ SCH ×5 (08:18→21:17)
[2020-04-06] MEDS: Insulin DETEMIR 100 UNIT/ML X5UNITS SQ SCH ×2 (08:21→21:16)
[2020-04-06] MEDS: amLODIPine 5 MG TABLET PO SCH ×2 (08:22→21:19)
[2020-04-06] MEDS: Pregabalin 50 MG CAPSULE PO SCH ×3 (08:22→21:21)
[2020-04-06] MEDS: levoFLOXacin 750 MG/150 ML 750 MG/150 ML BAG IVPB SCH (17:06)
[2020-04-07] MEDS: *HR* OxyCODONE Immed Rel 5 MG TABLET PO PRN ×3 (03:04→19:59)
[2020-04-07] MEDS: 0.9 % Sodium Chloride 1,000 ML IVC SCH ×2 (03:21→15:24)
[2020-04-07] MEDS: *HR* Heparin 5,000 UNIT/ML VIAL SQ SCH ×3 (05:29→22:17)
[2020-04-07] MEDS: Budesonide/Formoterol 160/4.5 1 PUFF INH IH SCH ×2 (07:24→20:55)
[2020-04-07] MEDS: amLODIPine 5 MG TABLET PO SCH ×2 (08:12→19:59)
[2020-04-07] MEDS: Pregabalin 50 MG CAPSULE PO SCH ×3 (08:13→19:59)
[2020-04-07] MEDS: Insulin DETEMIR 100 UNIT/ML X5UNITS SQ SCH ×2 (08:13→22:17)
[2020-04-07] MEDS: Insulin LISPRO 300 UNITS/3 ML VIAL SQ SCH ×7 (08:14→20:08)
[2020-04-07 08:39] LABS: Basophils % 0.4 %; Eosinophils # 0.2 K/mcL (0.0-0.6); Eosinophils % 1.7 %; Hemoglobin 12.4 g/dL (12.9-16.9); Immature Granulocytes % 0.9 % (0-4); Lymphocytes # 1.2 K/mcL (0.6-4.6); Lymphocytes % 11.3 %; Mean Corpuscular HGB Conc 30.2 g/dL (31.6-35.5); Mean Corpuscular Hemoglobin 23.8 pg (28.0-33.3); Mean Corpuscular Volume 78.5 fL (83.0-100.0); Mean Platelet Volume 8.9 fL (9.4-12.4); Monocytes # 0.6 K/mcL (0.0-1.3); Monocytes % 5.9 %; Neutrophils # 8.2 K/mcL (1.6-8.9); Platelet Count 297 K/mcL (140-400); Red Blood Count 5.22 M/mcL (4.19-5.50); Red Cell Distribution Width 17.9 % (11.5-14.5); Segmented Neutrophils % 79.8 %; White Blood Count 10.3 K/mcL (4.3-11.1)
[2020-04-07 08:57] LABS: Calcium 8.6 mg/dL (8.6-10.3); Potassium 4.1 mEq/L (3.5-5.1)
[2020-04-07] MEDS ORDERED: *HR* Dextrose 50 % in Water (Vial) 50 ML VIAL IVP PRN (15:01)
[2020-04-07] MEDS ORDERED: Naloxone 0.4 MG/ML INJ IVP PRN (15:02)
[2020-04-07] MEDS ORDERED: Insulin Human Regular 100 UNIT in 0.9 % Sodium Chloride 100 ML IVC SCH (15:15)
[2020-04-07] MEDS: *HR* HYDROcodone/Acet 5/325 mg TABLET PO PRN (22:27)
[2020-04-08] MEDS: *HR* OxyCODONE Immed Rel 5 MG TABLET PO PRN ×3 (04:41→21:16)
[2020-04-08] MEDS: *HR* Heparin 5,000 UNIT/ML VIAL SQ SCH ×3 (05:29→21:17)
[2020-04-08 06:47] LABS: Hematocrit 37.7 % (37.5-50.1); Hemoglobin 11.7 g/dL (12.9-16.9); Mean Corpuscular Hemoglobin 24.8 pg (28.0-33.3); Mean Corpuscular Volume 79.9 fL (83.0-100.0); Mean Platelet Volume 9.1 fL (9.4-12.4); Platelet Count 271 K/mcL (140-400); Red Blood Count 4.72 M/mcL (4.19-5.50); Red Cell Distribution Width 17.8 % (11.5-14.5); White Blood Count 10.3 K/mcL (4.3-11.1)
[2020-04-08 07:06] LABS: Calcium 8.3 mg/dL (8.6-10.3); Potassium 4.2 mEq/L (3.5-5.1)
[2020-04-08] MEDS: Budesonide/Formoterol 160/4.5 1 PUFF INH IH SCH ×2 (07:27→20:02)
[2020-04-08] MEDS: Pregabalin 50 MG CAPSULE PO SCH ×3 (08:17→21:17)
[2020-04-08] MEDS: Insulin LISPRO 300 UNITS/3 ML VIAL SQ SCH ×7 (08:17→21:18)
[2020-04-08] MEDS: amLODIPine 5 MG TABLET PO SCH ×2 (08:18→21:17)
[2020-04-08] MEDS: Insulin DETEMIR 100 UNIT/ML X5UNITS SQ SCH ×2 (08:21→21:17)
[2020-04-08 12:09] LABS: Adenovirus Not Detected (Not Detect); Bordetella Pertussis Not Detected (Not Detect); Chlamydophila pneumoniae Not Detected (Not Detect); Coronavirus 229E Not Detected (Not Detect); Coronavirus HKU1 Not Detected (Not Detect); Coronavirus NL63 Not Detected (Not Detect); Coronavirus OC43 Not Detected (Not Detect); Human Metapneumovirus Not Detected (Not Detect); Human Rhinovirus/Enterovirus Not Detected (Not Detect); Influenza A Subtype 2009 H1 Not Detected (Not Detect); Influenza B Not Detected (Not Detect); Mycoplasma pneumoniae Not Detected (Not Detect); Parainfluenza Virus 1 Not Detected (Not Detect); Parainfluenza Virus 2 Not Detected (Not Detect); Parainfluenza Virus 3 Not Detected (Not Detect); Parainfluenza Virus 4 Not Detected (Not Detect); Respiratory Syncytial Virus Not Detected (Not Detect); SARS-CoV-2 Not Detected (Not Detect)
[2020-04-08] MEDS: 0.9 % Sodium Chloride 1,000 ML IVC SCH ×3 (12:19→23:57)
[2020-04-08] MEDS: levoFLOXacin 750 MG/150 ML 750 MG/150 ML BAG IVPB SCH (15:21)
[2020-04-09] MEDS: *HR* OxyCODONE Immed Rel 5 MG TABLET PO PRN ×2 (05:14→12:40)
[2020-04-09] MEDS: *HR* Heparin 5,000 UNIT/ML VIAL SQ SCH ×3 (05:14→22:24)
[2020-04-09 05:29] LABS: Hematocrit 36.3 % (37.5-50.1); Hemoglobin 11.2 g/dL (12.9-16.9); Mean Corpuscular HGB Conc 30.9 g/dL (31.6-35.5); Mean Corpuscular Hemoglobin 24.2 pg (28.0-33.3); Mean Corpuscular Volume 78.6 fL (83.0-100.0); Mean Platelet Volume 9.1 fL (9.4-12.4); Platelet Count 263 K/mcL (140-400); Red Blood Count 4.62 M/mcL (4.19-5.50); Red Cell Distribution Width 18.1 % (11.5-14.5)
[2020-04-09 05:45] LABS: Calcium 8.4 mg/dL (8.6-10.3); Potassium 4.4 mEq/L (3.5-5.1)
[2020-04-09] MEDS: Budesonide/Formoterol 160/4.5 1 PUFF INH IH SCH ×2 (07:54→23:01)
[2020-04-09] MEDS: Pregabalin 50 MG CAPSULE PO SCH ×3 (08:16→22:25)
[2020-04-09] MEDS: Insulin DETEMIR 100 UNIT/ML X5UNITS SQ SCH ×2 (08:17→22:27)
[2020-04-09] MEDS: amLODIPine 5 MG TABLET PO SCH ×2 (08:17→22:25)
[2020-04-09] MEDS: Insulin LISPRO 300 UNITS/3 ML VIAL SQ SCH ×6 (08:18→16:09)
[2020-04-09] MEDS: levoFLOXacin 750 MG/150 ML 750 MG/150 ML BAG IVPB SCH (15:38)
[2020-04-09] MEDS: 0.9 % Sodium Chloride 1,000 ML IVC SCH ×2 (15:39→22:27)
[2020-04-09] MEDS ORDERED: *HR* FentaNYL (PF) 100 MCG/2 ML VIAL ONE (16:39)
[2020-04-09] MEDS ORDERED: *HR* Midazolam HCl 2 MG/2 ML VIAL ONE (16:39)
[2020-04-09] MEDS ORDERED: Isovue-300 50ML VIAL ONE (16:40)
[2020-04-09] MEDS ORDERED: Lidocaine -MPF 2% 2 ML VIAL ONE (16:40)
[2020-04-09] MEDS ORDERED: *HR* Propofol 200 MG/20 ML VIAL IVP ONE (16:40)
[2020-04-09] MEDS ORDERED: Dexamethasone 4 MG/ML VIAL ONE (16:41)
[2020-04-09] MEDS ORDERED: Ondansetron 4 MG/2 ML VIAL ONE (16:41)
[2020-04-09] MEDS ORDERED: *HR* Succinylcholine 200 MG/10 ML VIAL IVP ONE (16:47)
[2020-04-09] MEDS ORDERED: Acetaminophen IV 1,000 MG/100 ML INFUS..BTL ONE (18:43)
[2020-04-09] MEDS ORDERED: Acetaminophen IV 1,000 MG/100 ML INFUS..BTL IVPB ONE (18:56)
[2020-04-09] MEDS ORDERED: Acetaminophen 325 MG TABLET PO PRN (20:01)
[2020-04-09] MEDS ORDERED: Dextrose Gel 15 GM/37.5 ML TUBE PO PRN ×2 (20:01)
[2020-04-09] MEDS ORDERED: *HR* OxyCODONE Immed Rel 5 MG TABLET PO PRN (20:01)
[2020-04-09] MEDS ORDERED: Naloxone 0.4 MG/ML INJ IVP PRN (20:01)
[2020-04-09] MEDS ORDERED: *HR* Dextrose 50 % in Water (Vial) 50 ML VIAL IVP PRN (20:01)
[2020-04-09] MEDS ORDERED: *HR* HYDROcodone/Acet 5/325 mg TABLET PO PRN (20:01)
[2020-04-09] MEDS ORDERED: D5% in Water 1,000 ML IVC PRN (20:01)
[2020-04-09] MEDS ORDERED: Insulin LISPRO 300 UNITS/3 ML VIAL SQ SCH (21:00)
[2020-04-10] MEDS: *HR* Heparin 5,000 UNIT/ML VIAL SQ SCH (04:55)
[2020-04-10 05:21] LABS: Basophils % 0.2 %; Hemoglobin 11.3 g/dL (12.9-16.9); Immature Granulocytes % 0.9 % (0-4); Lymphocytes # 0.4 K/mcL (0.6-4.6); Lymphocytes % 2.4 %; Mean Corpuscular HGB Conc 30.5 g/dL (31.6-35.5); Mean Corpuscular Hemoglobin 24.2 pg (28.0-33.3); Mean Corpuscular Volume 79.4 fL (83.0-100.0); Mean Platelet Volume 9.4 fL (9.4-12.4); Monocytes # 1.1 K/mcL (0.0-1.3); Neutrophils # 15.8 K/mcL (1.6-8.9); Platelet Count 268 K/mcL (140-400); Red Blood Count 4.66 M/mcL (4.19-5.50); Red Cell Distribution Width 18.3 % (11.5-14.5); Segmented Neutrophils % 90.5 %
[2020-04-10 05:22] LABS: White Blood Count 17.5 K/mcL (4.3-11.1)
[2020-04-10 05:36] LABS: Potassium 4.8 mEq/L (3.5-5.1)
[2020-04-10] MEDS ORDERED: Insulin LISPRO 300 UNITS/3 ML VIAL SQ SCH ×2 (07:30→08:00)
[2020-04-10] MEDS: Budesonide/Formoterol 160/4.5 1 PUFF INH IH SCH (08:05)
[2020-04-10] MEDS: Insulin DETEMIR 100 UNIT/ML X5UNITS SQ SCH (08:20)
[2020-04-10] MEDS: amLODIPine 5 MG TABLET PO SCH (08:20)
[2020-04-10] MEDS: 0.9 % Sodium Chloride 1,000 ML IVC SCH (08:20)
[2020-04-10] MEDS: Pregabalin 50 MG CAPSULE PO SCH (08:21)
[2020-04-10 10:26] VITALS: BP 136/82
[2020-04-10] MEDS ORDERED: levoFLOXacin 750 MG/150 ML 750 MG/150 ML BAG IVPB SCH (15:00)
[2020-04-10] MEDS ORDERED: levoFLOXacin 750 MG TABLET PO SCH (16:00)
[2020-04-15 06:32] LABS: Calculi Mass 10 mg
== END 2020-04-10 11:47 | disposition home or self-care (01) | DRG 854 ==
LOC: EMEROOARM 15:51 → 3BNU 15:51 → SUATTDRO 20:54 → 3BNU 21:55 → 3ANU 04-06 17:48
PROVIDERS: ADMIT Internal Medicine; ATTEND Internal Medicine

== ENCOUNTER 2020-09-05 19:22 | Observation (INO) ==
[2020-09-05] MEDS ORDERED: Isovue-370 500 ML BOTTLE IVP ONE (21:30)
[2020-09-05] MEDS ORDERED: 0.9 % Sodium Chloride 1,000 ML IVC ONE (21:31)
[2020-09-05] MEDS ORDERED: Morphine Sulfate 2 MG/ML SYRINGE IVP ONE (21:35)
[2020-09-05 21:45] LABS: Basophils # 0.1 K/mcL (0.0-0.2); Basophils % 0.4 %; Eosinophils # 0.2 K/mcL (0.0-0.6); Hematocrit 38.4 % (37.5-50.1); Hemoglobin 11.8 g/dL (12.9-16.9); Immature Granulocytes % 0.3 % (0-4); Lymphocytes # 2.1 K/mcL (0.6-4.6); Lymphocytes % 17.5 %; Mean Corpuscular HGB Conc 30.7 g/dL (31.6-35.5); Mean Corpuscular Hemoglobin 24.7 pg (28.0-33.3); Mean Corpuscular Volume 80.5 fL (83.0-100.0); Mean Platelet Volume 9.5 fL (9.4-12.4); Monocytes # 0.6 K/mcL (0.0-1.3); Monocytes % 5.4 %; Neutrophils # 8.7 K/mcL (1.6-8.9); Platelet Count 278 K/mcL (140-400); Red Blood Count 4.77 M/mcL (4.19-5.50); Red Cell Distribution Width 17.2 % (11.5-14.5); Segmented Neutrophils % 74.4 %; White Blood Count 11.7 K/mcL (4.3-11.1)
[2020-09-05 21:55] LABS: INR 1.2; Prothrombin Time 13.5 Seconds (9.4-12.1)
[2020-09-05 21:58] LABS: Activated Partial Thrombo Time 30.8 Seconds (26.0-36.0)
[2020-09-05 22:10] LABS: Alanine Aminotransferase 9 Units/L (7-52); Albumin 3.1 g/dL (3.5-5.7); Albumin/Globulin Ratio 0.8 (1.1-2.2); Alkaline Phosphatase 46 Units/L (34-104); Aspartate Amino Transferase 8 Units/L (13-39); BUN/Creatinine Ratio 14 (6-26); Bilirubin,Direct 0.1 mg/dL (0.0-0.2); Bilirubin,Indirect 0.4 mg/dL (0.0-1.0); Bilirubin,Total 0.5 mg/dL (0.3-1.0); Blood Urea Nitrogen 18 mg/dL (6-20); Calcium 8.5 mg/dL (8.6-10.3); Carbon Dioxide 28 mEq/L (23-29); Chloride 101 mEq/L (98-107); Globulin 3.9 g/dL (2.4-3.5); Glucose 251 mg/dL (70-105); Lipase 46 Units/L (11-82); Magnesium 1.7 mg/dL (1.6-2.6); Osmolality,Calculated 290 (280-300); Phosphorous 2.9 mg/dL (2.7-4.5); Potassium 3.8 mEq/L (3.5-5.1); Sodium 135 mEq/L (136-145); eGFR For African Americans > 60 (> 60); eGFR For Non-African Americans > 60 (> 60)
[2020-09-05 22:11] LABS: Troponin I < 0.03 ng/mL (< 0.04)
[2020-09-05 23:09] LABS: Bacteria,Urine Few per hpf (None-Few); Bilirubin,Urine Negative (Negative); Blood,Urine Trace (Negative); Budding Yeast,Urine Moderate per hpf (None Seen); Clarity,Urine Turbid (Clear); Color,Urine Light-Yellow (Yellow); Glucose,Urine (UA) 30 mg/dL (Normal); Ketones,Urine Negative (Negative); Leukocyte Esterase,Urine Large (Negative); Mucus,Urine Few per lpf (None-Few); Nitrite,Urine Negative (Negative); PH,Urine 6.5 pH Units (5.0-8.0); Protein,Urine >=300 mg/dL (Neg-Trace); Squamous Epithelial Cell,Urine Few per hpf (None-Few); Urobilinogen,Urine Normal (Normal); WBC,Urine TNTC per hpf (0-3)
[2020-09-05] MEDS ORDERED: cefTRIAXone 2,000 MG in Water for inj. (sterile) 20 ML IVP ONE (23:53)
[2020-09-06] MEDS: Clindamycin 600 MG/50 ML 600 MG/50 ML IV.SOLN IVPB SCH ×5 (00:19→16:09)
[2020-09-06 00:38] LABS: Chlamydia Trachomatis DNA Ur NOT DETECTED (Not Detect)
[2020-09-06] MEDS ORDERED: Acetaminophen 325 MG TABLET PO PRN ×2 (01:08→21:03)
[2020-09-06] MEDS ORDERED: Naloxone 0.4 MG/ML INJ IVP PRN ×2 (01:08→21:03)
[2020-09-06] MEDS ORDERED: Ondansetron 4 MG/2 ML VIAL IVP PRN (01:08)
[2020-09-06] MEDS ORDERED: D5% in Water 1,000 ML IVC PRN ×2 (01:13→21:03)
[2020-09-06] MEDS ORDERED: Dextrose Gel 15 GM/37.5 ML TUBE PO PRN ×4 (01:13→21:03)
[2020-09-06] MEDS ORDERED: *HR* Dextrose 50 % in Water (Vial) 50 ML VIAL IVP PRN ×2 (01:13→21:03)
[2020-09-06 02:21] LABS: Basophils # 0.1 K/mcL (0.0-0.2); Basophils % 0.4 %; Eosinophils # 0.2 K/mcL (0.0-0.6); Hematocrit 41.2 % (37.5-50.1); Hemoglobin 12.6 g/dL (12.9-16.9); Immature Granulocytes % 0.3 % (0-4); Lymphocytes # 2.1 K/mcL (0.6-4.6); Lymphocytes % 18.3 %; Mean Corpuscular HGB Conc 30.6 g/dL (31.6-35.5); Mean Corpuscular Hemoglobin 24.5 pg (28.0-33.3); Mean Platelet Volume 9.4 fL (9.4-12.4); Monocytes # 0.6 K/mcL (0.0-1.3); Monocytes % 5.3 %; Neutrophils # 8.5 K/mcL (1.6-8.9); Platelet Count 282 K/mcL (140-400); Red Blood Count 5.15 M/mcL (4.19-5.50); Red Cell Distribution Width 17.3 % (11.5-14.5); Segmented Neutrophils % 73.7 %; White Blood Count 11.6 K/mcL (4.3-11.1)
[2020-09-06] MEDS: 0.9 % Sodium Chloride 1,000 ML IVC SCH ×2 (02:24→13:03)
[2020-09-06] MEDS: Insulin LISPRO 300 UNITS/3 ML VIAL SUBQ SCH ×4 (02:24→16:09)
[2020-09-06] MEDS: *HR* HYDROmorphone (PF) 1 MG/ML SYRINGE IVP PRN ×3 (02:28→12:53)
[2020-09-06 02:30] LABS: INR 1.2; Prothrombin Time 13.5 Seconds (9.4-12.1)
[2020-09-06 02:37] LABS: BUN/Creatinine Ratio 15 (6-26); Blood Urea Nitrogen 17 mg/dL (6-20); Calcium 8.5 mg/dL (8.6-10.3); Carbon Dioxide 28 mEq/L (23-29); Chloride 101 mEq/L (98-107); Glucose 208 mg/dL (70-105); Magnesium 1.6 mg/dL (1.6-2.6); Osmolality,Calculated 290 (280-300); Potassium 3.8 mEq/L (3.5-5.1); Sodium 136 mEq/L (136-145); eGFR For African Americans > 60 (> 60); eGFR For Non-African Americans > 60 (> 60)
[2020-09-06] MEDS ORDERED: cefTRIAXone 1,000 MG in 0.9 % Sodium Chloride Mini Bag 100 ML IVPB SCH (09:00)
[2020-09-06 12:13] LABS: Adenovirus Not Detected (Not Detect); Bordetella Pertussis Not Detected (Not Detect); Chlamydophila pneumoniae Not Detected (Not Detect); Coronavirus 229E Not Detected (Not Detect); Coronavirus HKU1 Not Detected (Not Detect); Coronavirus NL63 Not Detected (Not Detect); Coronavirus OC43 Not Detected (Not Detect); Human Metapneumovirus Not Detected (Not Detect); Human Rhinovirus/Enterovirus Not Detected (Not Detect); Influenza A Subtype 2009 H1 Not Detected (Not Detect); Influenza B Not Detected (Not Detect); Parainfluenza Virus 1 Not Detected (Not Detect); Parainfluenza Virus 2 Not Detected (Not Detect); Parainfluenza Virus 3 Not Detected (Not Detect); Parainfluenza Virus 4 Not Detected (Not Detect); Respiratory Syncytial Virus Not Detected (Not Detect); SARS-CoV-2 Not Detected (Not Detect)
[2020-09-06 12:14] LABS: Mycoplasma pneumoniae Not Detected (Not Detect)
[2020-09-06] MEDS ORDERED: *HR* FentaNYL (PF) 100 MCG/2 ML VIAL ONE (18:59)
[2020-09-06] MEDS ORDERED: Dexamethasone 4 MG/ML VIAL ONE (19:17)
[2020-09-06] MEDS ORDERED: *HR* HYDROMORPHONE 2 MG/ML VIAL ONE (19:17)
[2020-09-06] MEDS ORDERED: Ketorolac 30 MG/ML VIAL ONE (19:17)
[2020-09-06] MEDS ORDERED: Acetaminophen IV 1,000 MG/100 ML BAG IVPB ONE (19:20)
[2020-09-06] MEDS ORDERED: *HR* Labetalol 20 MG/4 ML SYRINGE IVP PRN (19:47)
[2020-09-06] MEDS ORDERED: *HR* Labetalol 20 MG/4 ML SYRINGE IVP ONE (19:49)
[2020-09-06] MEDS: *HR* FentaNYL (PF) 100 MCG/2 ML VIAL IVP PRN ×2 (19:50→20:10)
[2020-09-06] MEDS ORDERED: Promethazine 6.25 MG in Water for inj. (sterile) 20 ML IVPB PRN (20:09)
[2020-09-06] MEDS ORDERED: Insulin LISPRO 300 UNITS/3 ML VIAL SUBQ SCH (21:00)
[2020-09-06] MEDS ORDERED: Budesonide/Formoterol 160/4.5 1 PUFF INH IH SCH (22:00)
[2020-09-06] MEDS: Budesonide/Formoterol 160/4.5 1 PUFF INH IH SCH (22:11)
[2020-09-07] MEDS: Clindamycin 600 MG/50 ML 600 MG/50 ML IV.SOLN IVPB SCH ×2 (00:10→09:47)
[2020-09-07] MEDS: *HR* HYDROmorphone (PF) 1 MG/ML SYRINGE IVP PRN ×3 (06:05→15:09)
[2020-09-07] MEDS: Budesonide/Formoterol 160/4.5 1 PUFF INH IH SCH (08:24)
[2020-09-07] MEDS: Insulin LISPRO 300 UNITS/3 ML VIAL SUBQ SCH ×3 (08:25→16:39)
[2020-09-07] MEDS ORDERED: cefTRIAXone 1,000 MG in 0.9 % Sodium Chloride Mini Bag 100 ML IVPB SCH (09:00)
[2020-09-07 15:20] VITALS: BP 160/80
[2020-09-07] MEDS ORDERED: Insulin LISPRO 300 UNITS/3 ML VIAL SUBQ SCH (21:00)
== END 2020-09-07 17:20 | disposition home or self-care (01) ==
LOC: EMEROOARM 19:22 → 3NENU 19:22 → SUATTDRO 09-06 01:02 → 3NENU 09-06 01:35
PROVIDERS: ADMIT Internal Medicine; ATTEND Student in an Organized Health Care Education/Training Program

== ENCOUNTER 2020-11-08 14:25 | Inpatient (IN) ==
[2020-11-08] MEDS ORDERED: Isovue-370 500 ML BOTTLE IVP ONE (16:12)
[2020-11-08 16:39] LABS: Basophils # 0.1 K/mcL (0.0-0.2); Basophils % 0.7 %; Eosinophils # 0.2 K/mcL (0.0-0.6); Eosinophils % 2.1 %; Hematocrit 41.2 % (37.5-50.1); Hemoglobin 12.8 g/dL (12.9-16.9); Immature Granulocytes % 0.5 % (0-4); Lymphocytes # 1.6 K/mcL (0.6-4.6); Lymphocytes % 19.5 %; Mean Corpuscular HGB Conc 31.1 g/dL (31.6-35.5); Mean Corpuscular Hemoglobin 25.4 pg (28.0-33.3); Mean Corpuscular Volume 81.9 fL (83.0-100.0); Mean Platelet Volume 9.6 fL (9.4-12.4); Monocytes # 0.6 K/mcL (0.0-1.3); Monocytes % 7.1 %; Neutrophils # 5.7 K/mcL (1.6-8.9); Platelet Count 273 K/mcL (140-400); Red Blood Count 5.03 M/mcL (4.19-5.50); Red Cell Distribution Width 19.4 % (11.5-14.5); Segmented Neutrophils % 70.1 %; White Blood Count 8.1 K/mcL (4.3-11.1)
[2020-11-08] MEDS ORDERED: 0.9 % Sodium Chloride 1,000 ML IVC ONE (16:50)
[2020-11-08] MEDS ORDERED: *HR* FentaNYL (PF) 100 MCG/2 ML VIAL IVP ONE (16:50)
[2020-11-08 17:01] LABS: Alanine Aminotransferase 11 Units/L (7-52); Albumin 2.7 g/dL (3.5-5.7); Albumin/Globulin Ratio 0.8 (1.1-2.2); Alkaline Phosphatase 54 Units/L (34-104); Aspartate Amino Transferase 9 Units/L (13-39); BUN/Creatinine Ratio 16 (6-26); Bilirubin,Direct 0.1 mg/dL (0.0-0.2); Bilirubin,Indirect 0.2 mg/dL (0.0-1.0); Bilirubin,Total 0.3 mg/dL (0.3-1.0); Blood Urea Nitrogen 22 mg/dL (6-20); Calcium 8.9 mg/dL (8.6-10.3); Carbon Dioxide 28 mEq/L (23-29); Chloride 102 mEq/L (98-107); Globulin 3.4 g/dL (2.4-3.5); Glucose 209 mg/dL (70-105); Osmolality,Calculated 287 (280-300); Potassium 3.9 mEq/L (3.5-5.1); Sodium 134 mEq/L (136-145); Total Protein 6.1 g/dL (6.4-8.9); eGFR For African Americans > 60 (> 60); eGFR For Non-African Americans 53 (> 60)
[2020-11-08 17:05] LABS: Amorphous Sediment,Urine Few per hpf (None-Few); Bacteria,Urine Few per hpf (None-Few); Bilirubin,Urine Negative (Negative); Blood,Urine Moderate (Negative); Clarity,Urine Turbid (Clear); Color,Urine Light-Yellow (Yellow); Glucose,Urine (UA) 500 mg/dL (Normal); Ketones,Urine Negative (Negative); Leukocyte Esterase,Urine Moderate (Negative); Mucus,Urine Few per lpf (None-Few); Nitrite,Urine Positive (Negative); PH,Urine 6.5 pH Units (5.0-8.0); Protein,Urine >=600 mg/dL (Neg-Trace); Squamous Epithelial Cell,Urine Few per hpf (None-Few); Urobilinogen,Urine Normal (Normal); WBC,Urine TNTC per hpf (0-3)
[2020-11-08] MEDS ORDERED: Clindamycin 900 MG/50 ML 900 MG/50 ML IV.SOLN IVPB ONE (17:46)
[2020-11-08] MEDS ORDERED: Fluconazole 200 MG/100 ML 200 MG/100 ML BAG IVPB ONE (18:00)
[2020-11-08] MEDS ORDERED: Cefepime HCl 2,000 MG in Water for inj. (sterile) 20 ML IVP ONE (18:00)
[2020-11-08] MEDS ORDERED: Acetaminophen 325 MG TABLET PO PRN (19:48)
[2020-11-08] MEDS ORDERED: Ondansetron 4 MG/2 ML VIAL IVP PRN (19:48)
[2020-11-08] MEDS ORDERED: Naloxone 0.4 MG/ML INJ IVP PRN (19:48)
[2020-11-08] MEDS ORDERED: *HR* Promethazine 25 MG/ML VIAL IM PRN (19:48)
[2020-11-08] MEDS ORDERED: Melatonin 3 MG TABLET PO PRN (19:48)
[2020-11-08] MEDS ORDERED: D5% in Water 1,000 ML IVC PRN (19:51)
[2020-11-08] MEDS ORDERED: Dextrose Gel 15 GM/37.5 ML TUBE PO PRN ×2 (19:51)
[2020-11-08] MEDS ORDERED: *HR* Dextrose 50 % in Water (Vial) 50 ML VIAL IVP PRN (19:51)
[2020-11-08] MEDS ORDERED: Insulin DETEMIR 100 UNIT/ML X5UNITS SUBQ SCH (21:00)
[2020-11-08] MEDS: *HR* HYDROcodone/Acet 5/325 mg TABLET PO PRN (21:43)
[2020-11-08] MEDS: Ringers Solution, Lactated 1,000 ML IVC SCH (23:05)
[2020-11-08] MEDS: Insulin LISPRO 300 UNITS/3 ML VIAL SUBQ SCH (23:29)
[2020-11-09] MEDS: Cefepime HCl 2,000 MG in Water for inj. (sterile) 20 ML IVP SCH ×3 (03:05→15:58)
[2020-11-09] MEDS: *HR* HYDROcodone/Acet 5/325 mg TABLET PO PRN ×2 (04:18→11:17)
[2020-11-09] MEDS: Clindamycin 600 MG/50 ML 600 MG/50 ML IV.SOLN IVPB SCH ×3 (04:19→20:02)
[2020-11-09 04:30] LABS: Basophils # 0.1 K/mcL (0.0-0.2); Basophils % 0.6 %; Eosinophils # 0.3 K/mcL (0.0-0.6); Eosinophils % 2.9 %; Hemoglobin 12.5 g/dL (12.9-16.9); Immature Granulocytes % 0.4 % (0-4); Lymphocytes # 2.1 K/mcL (0.6-4.6); Lymphocytes % 21.1 %; Mean Corpuscular HGB Conc 30.5 g/dL (31.6-35.5); Mean Corpuscular Hemoglobin 24.9 pg (28.0-33.3); Mean Corpuscular Volume 81.5 fL (83.0-100.0); Mean Platelet Volume 9.8 fL (9.4-12.4); Monocytes # 0.7 K/mcL (0.0-1.3); Monocytes % 6.8 %; Neutrophils # 6.7 K/mcL (1.6-8.9); Platelet Count 281 K/mcL (140-400); Red Blood Count 5.03 M/mcL (4.19-5.50); Red Cell Distribution Width 19.7 % (11.5-14.5); Segmented Neutrophils % 68.2 %; White Blood Count 9.9 K/mcL (4.3-11.1)
[2020-11-09 04:36] LABS: INR 1.1; Prothrombin Time 12.7 Seconds (9.4-12.1)
[2020-11-09 04:51] LABS: BUN/Creatinine Ratio 17 (6-26); Blood Urea Nitrogen 22 mg/dL (6-20); Calcium 8.6 mg/dL (8.6-10.3); Carbon Dioxide 25 mEq/L (23-29); Chloride 104 mEq/L (98-107); Glucose 195 mg/dL (70-105); Magnesium 1.4 mg/dL (1.6-2.6); Osmolality,Calculated 289 (280-300); Phosphorous 3.8 mg/dL (2.7-4.5); Sodium 135 mEq/L (136-145); eGFR For African Americans > 60 (> 60); eGFR For Non-African Americans 57 (> 60)
[2020-11-09] MEDS: Insulin LISPRO 300 UNITS/3 ML VIAL SUBQ SCH ×4 (07:48→20:18)
[2020-11-09] MEDS: *HR* Enoxaparin 40 MG/0.4 ML SYRINGE SQ SCH (07:49)
[2020-11-09] MEDS: Fluconazole 200 MG/100 ML 200 MG/100 ML BAG IVPB SCH (11:13)
[2020-11-09] MEDS: Ringers Solution, Lactated 1,000 ML IVC SCH (11:14)
[2020-11-09] MEDS ORDERED: Morphine Sulfate 2 MG/ML SYRINGE IVP ONE (15:36)
[2020-11-09] MEDS: Pregabalin 50 MG CAPSULE PO SCH ×2 (15:58→20:03)
[2020-11-09] MEDS ORDERED: Nicotine 2 MG GUM BC PRN (18:00)
[2020-11-09] MEDS ORDERED: Nicotine 2 MG GUM BC SCH (18:00)
[2020-11-09] MEDS: Ascorbic Acid 500 MG TABLET PO SCH (20:02)
[2020-11-09] MEDS ORDERED: Insulin DETEMIR 100 UNIT/ML X5UNITS SUBQ SCH (21:00)
[2020-11-09] MEDS: Budesonide/Formoterol 160/4.5 1 PUFF INH IH SCH (22:19)
[2020-11-09] MEDS: Ipratropium/Albuterol Neb 3 ML IH SCH (22:19)
[2020-11-10] MEDS: Cefepime HCl 2,000 MG in Water for inj. (sterile) 20 ML IVP SCH ×3 (00:20→16:23)
[2020-11-10] MEDS: *HR* HYDROcodone/Acet 5/325 mg TABLET PO PRN ×3 (01:30→20:56)
[2020-11-10] MEDS: Ipratropium/Albuterol Neb 3 ML IH SCH ×4 (03:28→22:26)
[2020-11-10] MEDS: *HR* Enoxaparin 40 MG/0.4 ML SYRINGE SQ SCH (05:36)
[2020-11-10] MEDS: Clindamycin 600 MG/50 ML 600 MG/50 ML IV.SOLN IVPB SCH ×3 (05:36→20:52)
[2020-11-10 06:56] LABS: Basophils # 0.1 K/mcL (0.0-0.2); Basophils % 0.9 %; Eosinophils # 0.3 K/mcL (0.0-0.6); Eosinophils % 3.6 %; Hematocrit 39.3 % (37.5-50.1); Immature Granulocytes % 0.5 % (0-4); Lymphocytes # 1.7 K/mcL (0.6-4.6); Lymphocytes % 22.4 %; Mean Corpuscular HGB Conc 30.5 g/dL (31.6-35.5); Mean Corpuscular Hemoglobin 25.1 pg (28.0-33.3); Mean Platelet Volume 9.8 fL (9.4-12.4); Monocytes # 0.6 K/mcL (0.0-1.3); Monocytes % 7.3 %; Neutrophils # 4.9 K/mcL (1.6-8.9); Platelet Count 264 K/mcL (140-400); Red Blood Count 4.79 M/mcL (4.19-5.50); Red Cell Distribution Width 19.2 % (11.5-14.5); Segmented Neutrophils % 65.3 %; White Blood Count 7.5 K/mcL (4.3-11.1)
[2020-11-10 07:19] LABS: BUN/Creatinine Ratio 16 (6-26); Blood Urea Nitrogen 23 mg/dL (6-20); Calcium 8.4 mg/dL (8.6-10.3); Carbon Dioxide 28 mEq/L (23-29); Chloride 103 mEq/L (98-107); Glucose 341 mg/dL (70-105); Magnesium 2.1 mg/dL (1.6-2.6); Osmolality,Calculated 295 (280-300); Phosphorous 3.7 mg/dL (2.7-4.5); Potassium 4.3 mEq/L (3.5-5.1); Sodium 134 mEq/L (136-145); eGFR For African Americans > 60 (> 60); eGFR For Non-African Americans 53 (> 60)
[2020-11-10 08:18] LABS: Estimated Average Glucose 266 mg/dl; Hemoglobin A1C 10.9 %
[2020-11-10] MEDS: Insulin LISPRO 300 UNITS/3 ML VIAL SUBQ SCH ×7 (08:18→20:51)
[2020-11-10] MEDS: Insulin DETEMIR 100 UNIT/ML X5UNITS SUBQ SCH ×2 (08:22→21:12)
[2020-11-10] MEDS ORDERED: METHENAMINE HIPPURATE 1 GM PO SCH (09:00)
[2020-11-10] MEDS: NIFEdipine XL (24 HR) 60 MG TAB.ER.24 PO SCH (09:47)
[2020-11-10] MEDS: Ascorbic Acid 500 MG TABLET PO SCH ×2 (09:47→20:52)
[2020-11-10] MEDS: Pregabalin 50 MG CAPSULE PO SCH ×3 (09:47→20:52)
[2020-11-10] MEDS: Calcium Gluconate 1gm/50mL 1 GM/50 ML BAG IVPB SCH (09:49)
[2020-11-10] MEDS: Fluconazole 200 MG/100 ML 200 MG/100 ML BAG IVPB SCH (09:50)
[2020-11-10] MEDS: Budesonide/Formoterol 160/4.5 1 PUFF INH IH SCH ×2 (10:29→22:26)
[2020-11-10] MEDS: Nicotine 14 MG PATCH.TD24 TD SCH (11:08)
[2020-11-10] MEDS ORDERED: Calcium Gluconate 1gm/50mL 1 GM/50 ML BAG IVPB ONE (12:15)
[2020-11-10] MEDS: Lactobacillus 1 EACH CAP.SPRINK PO SCH (20:52)
[2020-11-11] MEDS: Cefepime HCl 2,000 MG in Water for inj. (sterile) 20 ML IVP SCH ×3 (00:10→15:43)
[2020-11-11] MEDS: Ipratropium/Albuterol Neb 3 ML IH SCH ×3 (03:42→15:50)
[2020-11-11] MEDS: Clindamycin 600 MG/50 ML 600 MG/50 ML IV.SOLN IVPB SCH ×2 (06:03→11:38)
[2020-11-11] MEDS: *HR* Enoxaparin 40 MG/0.4 ML SYRINGE SQ SCH (06:05)
[2020-11-11] MEDS: Calcium Gluconate 1gm/50mL 1 GM/50 ML BAG IVPB SCH (07:20)
[2020-11-11] MEDS: Insulin LISPRO 300 UNITS/3 ML VIAL SUBQ SCH ×6 (07:47→16:12)
[2020-11-11] MEDS: Insulin DETEMIR 100 UNIT/ML X5UNITS SUBQ SCH (07:49)
[2020-11-11] MEDS: Nicotine 14 MG PATCH.TD24 TD SCH (07:50)
[2020-11-11] MEDS: Ascorbic Acid 500 MG TABLET PO SCH (07:50)
[2020-11-11] MEDS: NIFEdipine XL (24 HR) 60 MG TAB.ER.24 PO SCH (07:50)
[2020-11-11] MEDS: Lactobacillus 1 EACH CAP.SPRINK PO SCH (07:50)
[2020-11-11] MEDS: Pregabalin 50 MG CAPSULE PO SCH ×2 (07:50→15:43)
[2020-11-11] MEDS: Budesonide/Formoterol 160/4.5 1 PUFF INH IH SCH (09:26)
[2020-11-11] MEDS: *HR* HYDROcodone/Acet 5/325 mg TABLET PO PRN (09:51)
[2020-11-11 13:50] VITALS: BP 122/76
== END 2020-11-11 17:34 | disposition home or self-care (01) | DRG 603 ==
LOC: 3ANU 14:25 → EMEROOARM 14:25 → SUATTDRO 18:55 → 3ANU 19:49 → SUATTDRO 11-10 18:41
PROVIDERS: ADMIT Internal Medicine; ATTEND Student in an Organized Health Care Education/Training Program

== ENCOUNTER 2021-09-27 23:11 | Inpatient (IN) ==
[2021-09-27] MEDS ORDERED: Isovue-370 500 ML BOTTLE IVP ONE (23:25)
[2021-09-28 00:34] LABS: Basophils # 0.1 K/mcL (0.0-0.2); Basophils % 0.5 %; Eosinophils # 0.3 K/mcL (0.0-0.6); Eosinophils % 2.4 %; Hematocrit 32.6 % (37.5-50.1); Hemoglobin 10.3 g/dL (12.9-16.9); Immature Granulocytes % 0.5 % (0-4); Lymphocytes # 1.9 K/mcL (0.6-4.6); Lymphocytes % 14.7 %; Mean Corpuscular HGB Conc 31.6 g/dL (31.6-35.5); Mean Corpuscular Hemoglobin 26.3 pg (28.0-33.3); Mean Corpuscular Volume 83.4 fL (83.0-100.0); Mean Platelet Volume 9.7 fL (9.4-12.4); Monocytes # 0.9 K/mcL (0.0-1.3); Monocytes % 6.8 %; Neutrophils # 9.5 K/mcL (1.6-8.9); Platelet Count 232 K/mcL (140-400); Red Blood Count 3.91 M/mcL (4.19-5.50); Red Cell Distribution Width 19.1 % (11.5-14.5); Segmented Neutrophils % 75.1 %; White Blood Count 12.7 K/mcL (4.3-11.1)
[2021-09-28 00:59] LABS: Albumin 3.4 g/dL (3.5-5.7); Albumin/Globulin Ratio 0.8 (1.1-2.2); Bilirubin,Total 0.4 mg/dL (0.3-1.0); Calcium 8.6 mg/dL (8.6-10.3); Globulin 4.4 g/dL (2.4-3.5); Potassium 3.9 mEq/L (3.5-5.1); Total Protein 7.8 g/dL (6.4-8.9)
[2021-09-28] MEDS ORDERED: 0.9 % Sodium Chloride 1,000 ML IV ONE (00:59)
[2021-09-28] MEDS ORDERED: *HR* FentaNYL (PF) 100 MCG/2 ML VIAL IVP ONE (03:04)
[2021-09-28 03:41] LABS: Bacteria,Urine Few per hpf (None-Few); Bilirubin,Urine Negative (Negative); Blood,Urine Small (Negative); Clarity,Urine Clear (Clear); Color,Urine Light-Yellow (Yellow); Glucose,Urine (UA) Normal (Normal); Ketones,Urine Negative (Negative); Leukocyte Esterase,Urine Moderate (Negative); Mucus,Urine Few per lpf (None-Few); Nitrite,Urine Negative (Negative); Protein,Urine 200 mg/dL (Neg-Trace); RBC,Urine 0-3 per hpf (0-3); Squamous Epithelial Cell,Urine Few per hpf (None-Few); Urobilinogen,Urine Normal (Normal); WBC,Urine 30-50 per hpf (0-3)
[2021-09-28] MEDS ORDERED: levoFLOXacin 750 MG/150 ML 750 MG/150 ML BAG IVPB ONE (04:48)
[2021-09-28] MEDS ORDERED: Acetaminophen 325 MG TABLET PO PRN ×2 (04:57→11:01)
[2021-09-28] MEDS ORDERED: *HR* HYDROcodone/Acet 5/325 mg TABLET PO PRN (04:57)
[2021-09-28] MEDS ORDERED: Ondansetron 4 MG/2 ML VIAL IVP PRN (04:57)
[2021-09-28] MEDS ORDERED: Melatonin 3 MG TABLET PO PRN ×2 (04:57→11:01)
[2021-09-28] MEDS ORDERED: Naloxone 0.4 MG/ML INJ IVP PRN ×2 (04:57→11:01)
[2021-09-28] MEDS ORDERED: Ringers Solution, Lactated 1,000 ML IVC SCH (05:00)
[2021-09-28] MEDS ORDERED: D5% in Water 1,000 ML IVC PRN ×2 (05:01→11:01)
[2021-09-28] MEDS ORDERED: Dextrose 4 GM Chewable Tablets PO PRN ×4 (05:01→11:01)
[2021-09-28] MEDS ORDERED: *HR* Dextrose 50 % in Water (Syg) 50 ML SYRINGE IVP PRN ×2 (05:01→11:01)
[2021-09-28] MEDS ORDERED: *HR* Promethazine 25 MG/ML VIAL IM PRN ×2 (05:56→11:01)
[2021-09-28] MEDS ORDERED: *HR* Heparin 5,000 UNIT/ML VIAL SQ SCH (06:00)
[2021-09-28] MEDS ORDERED: Insulin LISPRO 300 UNITS/3 ML VIAL SUBQ SCH ×3 (07:30→21:00)
[2021-09-28] MEDS ORDERED: Clindamycin 600 MG/50 ML 600 MG/50 ML IV.SOLN IVPB SCH (08:00)
[2021-09-28] MEDS ORDERED: *HR* FentaNYL (PF) 100 MCG/2 ML VIAL ONE (08:11)
[2021-09-28] MEDS ORDERED: *HR* Succinylcholine 200 MG/10 ML VIAL IVP ONE (08:12)
[2021-09-28] MEDS ORDERED: Lidocaine HCL 4 ML Topical Solution (Laryng-O-Jet Kit Sterile Pak) TP ONE (08:12)
[2021-09-28] MEDS ORDERED: Lidocaine -MPF 2% 2 ML VIAL ONE (08:12)
[2021-09-28] MEDS ORDERED: *HR* Midazolam HCl 2 MG/2 ML VIAL ONE (08:12)
[2021-09-28] MEDS ORDERED: *HR* Propofol 200 MG/20 ML VIAL IVP ONE (08:12)
[2021-09-28] MEDS ORDERED: Insulin DETEMIR 100 UNIT/ML X5UNITS SUBQ SCH ×2 (09:00→21:00)
[2021-09-28] MEDS ORDERED: Ondansetron 4 MG/2 ML VIAL ONE (09:41)
[2021-09-28] MEDS ORDERED: Isovue-370 500 ML BOTTLE IVP ONE (11:01)
[2021-09-28] MEDS: Ringers Solution, Lactated 1,000 ML IVC SCH ×2 (11:52→20:25)
[2021-09-28] MEDS: Insulin LISPRO 300 UNITS/3 ML VIAL SUBQ SCH ×2 (11:52→16:41)
[2021-09-28 14:10] LABS: Uric Acid 6.1 mg/dL (2.3-7.6)
[2021-09-28 15:25] LABS: Protein/Creatinine Ratio,Urine 7.33 mg/mg (0.00-0.20)
[2021-09-28] MEDS: *HR* HYDROcodone/Acet 5/325 mg TABLET PO PRN ×2 (16:41→23:23)
[2021-09-28] MEDS: Clindamycin 600 MG/50 ML 600 MG/50 ML IV.SOLN IVPB SCH ×2 (16:42→23:23)
[2021-09-28 17:14] LABS: % Iron Saturation 7 % (20-55); Iron 19 mcg/dL (65-175); Transferrin 201 mg/dL (203-362)
[2021-09-29 01:24] LABS: Basophils % 0.1 %; Hematocrit 30.6 % (37.5-50.1); Hemoglobin 9.5 g/dL (12.9-16.9); Immature Granulocytes % 0.6 % (0-4); Lymphocytes # 0.6 K/mcL (0.6-4.6); Mean Corpuscular Volume 83.8 fL (83.0-100.0); Mean Platelet Volume 10.6 fL (9.4-12.4); Monocytes # 0.5 K/mcL (0.0-1.3); Monocytes % 4.6 %; Neutrophils # 9.5 K/mcL (1.6-8.9); Platelet Count 230 K/mcL (140-400); Red Blood Count 3.65 M/mcL (4.19-5.50); Red Cell Distribution Width 18.6 % (11.5-14.5); Segmented Neutrophils % 88.7 %; White Blood Count 10.7 K/mcL (4.3-11.1)
[2021-09-29 01:52] LABS: Thyroid Stimulating Hormone 1.274 mcIU/mL (0.340-5.600)
[2021-09-29 01:53] LABS: Triiodothyronine (T3) Free 2.06 pg/mL (2.50-3.90)
[2021-09-29 01:54] LABS: Potassium 4.4 mEq/L (3.5-5.1)
[2021-09-29 01:55] LABS: Calcium 7.9 mg/dL (8.6-10.3); Magnesium 1.5 mg/dL (1.6-2.6)
[2021-09-29] MEDS: Insulin LISPRO 300 UNITS/3 ML VIAL SUBQ SCH ×5 (03:40→20:37)
[2021-09-29] MEDS: *HR* HYDROcodone/Acet 5/325 mg TABLET PO PRN ×3 (07:28→20:36)
[2021-09-29] MEDS: Clindamycin 600 MG/50 ML 600 MG/50 ML IV.SOLN IVPB SCH ×3 (07:31→23:32)
[2021-09-29] MEDS: Magnesium Oxide 400 MG TABLET PO SCH (07:43)
[2021-09-29] MEDS ORDERED: Insulin DETEMIR 100 UNIT/ML X5UNITS SUBQ SCH (09:00)
[2021-09-29] MEDS: Insulin DETEMIR 100 UNIT/ML X5UNITS SUBQ SCH ×2 (09:09→20:36)
[2021-09-29] MEDS: *HR* Heparin 5,000 UNIT/ML VIAL SQ SCH ×2 (14:22→20:37)
[2021-09-29] MEDS: Budesonide/Formoterol 160/4.5 1 PUFF INH IH SCH (19:51)
[2021-09-30 01:04] LABS: Basophils % 0.3 %; Eosinophils # 0.1 K/mcL (0.0-0.6); Eosinophils % 1.2 %; Hematocrit 28.2 % (37.5-50.1); Immature Granulocytes % 0.7 % (0-4); Lymphocytes # 1.6 K/mcL (0.6-4.6); Lymphocytes % 17.8 %; Mean Corpuscular HGB Conc 31.9 g/dL (31.6-35.5); Mean Corpuscular Volume 81.5 fL (83.0-100.0); Mean Platelet Volume 10.1 fL (9.4-12.4); Monocytes # 0.7 K/mcL (0.0-1.3); Monocytes % 7.9 %; Neutrophils # 6.7 K/mcL (1.6-8.9); Platelet Count 219 K/mcL (140-400); Red Blood Count 3.46 M/mcL (4.19-5.50); Red Cell Distribution Width 18.6 % (11.5-14.5); Segmented Neutrophils % 72.1 %; White Blood Count 9.2 K/mcL (4.3-11.1)
[2021-09-30 01:19] LABS: Calcium 8.4 mg/dL (8.6-10.3); Potassium 3.9 mEq/L (3.5-5.1)
[2021-09-30] MEDS ORDERED: levoFLOXacin 750 MG/150 ML 750 MG/150 ML BAG IVPB SCH ×2 (06:00)
[2021-09-30] MEDS: *HR* Heparin 5,000 UNIT/ML VIAL SQ SCH ×3 (06:25→21:21)
[2021-09-30] MEDS: Clindamycin 600 MG/50 ML 600 MG/50 ML IV.SOLN IVPB SCH (08:11)
[2021-09-30] MEDS: Magnesium Oxide 400 MG TABLET PO SCH (08:12)
[2021-09-30] MEDS: *HR* HYDROcodone/Acet 5/325 mg TABLET PO PRN ×3 (08:12→23:00)
[2021-09-30] MEDS: BuPROPion XL (24 HR) 150 MG TABLET PO SCH (08:12)
[2021-09-30] MEDS: amLODIPine 5 MG TABLET PO SCH (08:12)
[2021-09-30] MEDS: Insulin LISPRO 300 UNITS/3 ML VIAL SUBQ SCH ×4 (08:13→21:22)
[2021-09-30] MEDS: Insulin DETEMIR 100 UNIT/ML X5UNITS SUBQ SCH ×2 (08:20→21:22)
[2021-09-30] MEDS: Budesonide/Formoterol 160/4.5 1 PUFF INH IH SCH ×2 (09:39→20:14)
[2021-09-30] MEDS ORDERED: DAPTOmycin 800 MG in 0.9 % Sodium Chloride 100 ML IVPB SCH (12:00)
[2021-09-30] MEDS: Pregabalin 50 MG CAPSULE PO SCH ×2 (16:29→21:21)
[2021-10-01 04:38] LABS: Complement C3 146 mg/dL (87-200)
[2021-10-01 04:39] LABS: Calcium 8.5 mg/dL (8.6-10.3); Magnesium 1.7 mg/dL (1.6-2.6); Potassium 3.9 mEq/L (3.5-5.1)
[2021-10-01] MEDS: *HR* Heparin 5,000 UNIT/ML VIAL SQ SCH ×3 (06:24→20:40)
[2021-10-01] MEDS: BuPROPion XL (24 HR) 150 MG TABLET PO SCH (08:43)
[2021-10-01] MEDS: Insulin DETEMIR 100 UNIT/ML X5UNITS SUBQ SCH ×2 (08:44→20:40)
[2021-10-01] MEDS: Magnesium Oxide 400 MG TABLET PO SCH (08:44)
[2021-10-01] MEDS: Pregabalin 50 MG CAPSULE PO SCH ×3 (08:44→20:40)
[2021-10-01] MEDS: amLODIPine 5 MG TABLET PO SCH (08:44)
[2021-10-01] MEDS: Insulin LISPRO 300 UNITS/3 ML VIAL SUBQ SCH ×4 (08:44→20:35)
[2021-10-01] MEDS: metroNIDAZOLE 500 MG TABLET PO SCH ×2 (09:22→20:40)
[2021-10-01] MEDS: *HR* HYDROcodone/Acet 5/325 mg TABLET PO PRN ×2 (09:34→17:37)
[2021-10-01] MEDS: Budesonide/Formoterol 160/4.5 1 PUFF INH IH SCH ×2 (10:44→20:08)
[2021-10-01] MEDS ORDERED: DAPTOmycin 800 MG in 0.9 % Sodium Chloride 100 ML IVPB SCH (13:00)
[2021-10-02] MEDS: *HR* HYDROcodone/Acet 5/325 mg TABLET PO PRN ×2 (00:10→12:18)
[2021-10-02 02:18] LABS: Calcium 8.6 mg/dL (8.6-10.3); Potassium 4.7 mEq/L (3.5-5.1)
[2021-10-02] MEDS: *HR* Heparin 5,000 UNIT/ML VIAL SQ SCH ×2 (05:07→14:48)
[2021-10-02 07:52] VITALS: PULSE 91
[2021-10-02] MEDS: metroNIDAZOLE 500 MG TABLET PO SCH (08:17)
[2021-10-02] MEDS: Pregabalin 50 MG CAPSULE PO SCH ×2 (08:17→14:48)
[2021-10-02] MEDS: BuPROPion XL (24 HR) 150 MG TABLET PO SCH (08:17)
[2021-10-02] MEDS: Magnesium Oxide 400 MG TABLET PO SCH (08:17)
[2021-10-02] MEDS: Insulin DETEMIR 100 UNIT/ML X5UNITS SUBQ SCH (08:17)
[2021-10-02] MEDS: amLODIPine 5 MG TABLET PO SCH (08:17)
[2021-10-02] MEDS: Insulin LISPRO 300 UNITS/3 ML VIAL SUBQ SCH ×2 (08:17→12:14)
[2021-10-02] MEDS: Budesonide/Formoterol 160/4.5 1 PUFF INH IH SCH (10:09)
[2021-10-02 10:21] VITALS: BP 122/76; TEMP 98.4; O2SAT 96
[2021-10-03 08:17] LABS: Kappa Qnt Free Light Chains 164.42 mg/L (3.30-19.40); Lambda Qnt Free Light Chains 81.88 mg/L (5.71-26.30)
[2021-10-04 09:45] LABS: ANA IgG by ELISA NONE DETECTED (None Detected)
[2021-10-05 00:52] LABS: Alpha 2 Globulin (PEP) 1.05 g/dL (0.48-1.05); Beta Globulin (PEP) 0.94 g/dL (0.48-1.10)
[2021-10-05 09:39] LABS: IFE Reflexed NOT DONE
[2021-10-06 00:50] LABS: ANCA IFA Titer <1:20 (<1:20)
[2021-10-06 10:33] LABS: ANCA IFA Pattern NONE DETECTED (None Detected); Serine Protease-3 Antibody 3 AU/mL (0-19)
== END 2021-10-02 15:28 | disposition home or self-care (01) | DRG 854 ==
LOC: 2ANU 23:11 → EMEROOARM 23:11 → SUATTDRO 09-28 05:03 → 2ANU 09-28 06:26
PROVIDERS: ADMIT Internal Medicine; ATTEND General Practice

== ENCOUNTER 2021-11-07 13:34 | Inpatient (IN) ==
[2021-11-07] MEDS ORDERED: Iopamidol - 370 500 ML MLS IVP ONE (14:37)
[2021-11-07] MEDS ORDERED: 0.9 % Sodium Chloride 1,000 ML IV ONE (14:41)
[2021-11-07] MEDS ORDERED: Clindamycin 900 MG/50 ML 900 MG/50 ML IV.SOLN IVPB ONE ×2 (14:41→15:00)
[2021-11-07] MEDS ORDERED: Cefepime HCl 2,000 MG in 0.9 % Sodium Chloride 10 ML IVP ONE (14:46)
[2021-11-07 15:04] LABS: Basophils # 0.1 K/mcL (0.0-0.2); Basophils % 0.6 %; Eosinophils # 0.2 K/mcL (0.0-0.6); Eosinophils % 1.8 %; Hematocrit 37.7 % (37.5-50.1); Hemoglobin 12.2 g/dL (12.9-16.9); Immature Granulocytes % 0.5 % (0-4); Lymphocytes # 1.7 K/mcL (0.6-4.6); Lymphocytes % 16.2 %; Mean Corpuscular HGB Conc 32.4 g/dL (31.6-35.5); Mean Corpuscular Hemoglobin 26.8 pg (28.0-33.3); Mean Corpuscular Volume 82.9 fL (83.0-100.0); Mean Platelet Volume 10.2 fL (9.4-12.4); Monocytes # 0.8 K/mcL (0.0-1.3); Monocytes % 7.6 %; Neutrophils # 7.5 K/mcL (1.6-8.9); Platelet Count 261 K/mcL (140-400); Red Blood Count 4.55 M/mcL (4.19-5.50); Red Cell Distribution Width 15.4 % (11.5-14.5); Segmented Neutrophils % 73.3 %; White Blood Count 10.2 K/mcL (4.3-11.1)
[2021-11-07 15:07] LABS: Bacteria,Urine Few per hpf (None-Few); Bilirubin,Urine Negative (Negative); Blood,Urine Moderate (Negative); Clarity,Urine Ex.Turbid (Clear); Color,Urine Yellow (Yellow); Glucose,Urine (UA) >=1000 mg/dL (Normal); Ketones,Urine Negative (Negative); Leukocyte Esterase,Urine Large (Negative); Mucus,Urine Few per lpf (None-Few); Nitrite,Urine Positive (Negative); Protein,Urine >=600 mg/dL (Neg-Trace); Specific Gravity,Urine 1.017 (1.010-1.025); Squamous Epithelial Cell,Urine Moderate per hpf (None-Few); Urobilinogen,Urine Normal (Normal); WBC,Urine TNTC per hpf (0-3)
[2021-11-07 15:23] LABS: Calcium 8.4 mg/dL (8.6-10.3)
[2021-11-07] MEDS ORDERED: Morphine Sulfate 2 MG/ML SYRINGE IVP ONE (15:38)
[2021-11-07] MEDS ORDERED: Dextrose Gel 15 GM/37.5 ML TUBE PO PRN ×2 (18:34)
[2021-11-07] MEDS ORDERED: D5% in Water 1,000 ML IVC PRN (18:34)
[2021-11-07] MEDS ORDERED: *HR* Dextrose 50 % in Water (Syg) 50 ML SYRINGE IVP PRN (18:34)
[2021-11-07] MEDS ORDERED: MOM Conc 10 ML UD.LIQ PO PRN (18:36)
[2021-11-07] MEDS ORDERED: Naloxone 0.4 MG/ML INJ IVP PRN (18:36)
[2021-11-07] MEDS ORDERED: Acetaminophen 325 MG TABLET PO PRN (18:36)
[2021-11-07] MEDS ORDERED: Melatonin 3 MG TABLET PO PRN (18:36)
[2021-11-07] MEDS: *HR* HYDROcodone/Acet 5/325 mg TABLET PO PRN (21:10)
[2021-11-07] MEDS: Lactobacillus 1 EACH CAP.SPRINK PO SCH (21:11)
[2021-11-07] MEDS: *HR* Heparin 5,000 UNIT/ML VIAL SQ SCH (21:11)
[2021-11-07] MEDS: Insulin LISPRO 300 UNITS/3 ML VIAL SUBQ SCH (21:14)
[2021-11-07] MEDS: Clindamycin 600 MG/50 ML 600 MG/50 ML IV.SOLN IVPB SCH (23:31)
[2021-11-07] MEDS: D5% in 0.45% NACL w KCl 20 MEQ/1,000 ML MLS IVC SCH (23:31)
[2021-11-08] MEDS ORDERED: Cefepime HCl 2,000 MG in 0.9 % Sodium Chloride 20 ML IVP SCH (03:00)
[2021-11-08] MEDS: *HR* Heparin 5,000 UNIT/ML VIAL SQ SCH ×3 (03:37→21:52)
[2021-11-08 04:50] LABS: Basophils # 0.1 K/mcL (0.0-0.2); Basophils % 0.6 %; Eosinophils # 0.3 K/mcL (0.0-0.6); Eosinophils % 2.6 %; Hematocrit 32.8 % (37.5-50.1); Immature Granulocytes % 0.5 % (0-4); Lymphocytes # 1.7 K/mcL (0.6-4.6); Lymphocytes % 17.7 %; Mean Corpuscular HGB Conc 31.7 g/dL (31.6-35.5); Mean Corpuscular Hemoglobin 26.5 pg (28.0-33.3); Mean Corpuscular Volume 83.7 fL (83.0-100.0); Mean Platelet Volume 10.4 fL (9.4-12.4); Monocytes # 0.6 K/mcL (0.0-1.3); Monocytes % 6.6 %; Neutrophils # 6.9 K/mcL (1.6-8.9); Platelet Count 245 K/mcL (140-400); Red Blood Count 3.92 M/mcL (4.19-5.50); Red Cell Distribution Width 15.5 % (11.5-14.5); White Blood Count 9.5 K/mcL (4.3-11.1)
[2021-11-08 04:52] LABS: INR 1.1; Prothrombin Time 12.3 Seconds (9.4-12.1)
[2021-11-08 04:56] LABS: Hemoglobin 10.4 g/dL (12.9-16.9)
[2021-11-08 05:09] LABS: Potassium 3.4 mEq/L (3.5-5.1)
[2021-11-08] MEDS ORDERED: Insulin DETEMIR 100 UNIT/ML X5UNITS SUBQ SCH (09:00)
[2021-11-08] MEDS: Lactobacillus 1 EACH CAP.SPRINK PO SCH ×2 (10:38→21:52)
[2021-11-08] MEDS: Clindamycin 600 MG/50 ML 600 MG/50 ML IV.SOLN IVPB SCH (10:39)
[2021-11-08] MEDS: Insulin LISPRO 300 UNITS/3 ML VIAL SUBQ SCH ×4 (10:39→21:53)
[2021-11-08] MEDS: *HR* HYDROcodone/Acet 5/325 mg TABLET PO PRN ×3 (10:39→23:57)
[2021-11-08] MEDS: DAPTOmycin 600 MG in 0.9 % Sodium Chloride 100 ML IVPB SCH (17:04)
[2021-11-08] MEDS: Ampicillin/Sulbactam 3,000 MG in 0.9 % Sodium Chloride Mini Bag 100 ML IVPB SCH ×2 (17:51→23:57)
[2021-11-08] MEDS: D5% in 0.45% NACL w KCl 20 MEQ/1,000 ML MLS IVC SCH (23:18)
[2021-11-09 01:50] LABS: Basophils # 0.1 K/mcL (0.0-0.2); Basophils % 0.6 %; Eosinophils # 0.3 K/mcL (0.0-0.6); Eosinophils % 3.7 %; Hematocrit 34.2 % (37.5-50.1); Hemoglobin 10.9 g/dL (12.9-16.9); Immature Granulocytes % 0.6 % (0-4); Lymphocytes # 1.7 K/mcL (0.6-4.6); Lymphocytes % 19.9 %; Mean Corpuscular HGB Conc 31.9 g/dL (31.6-35.5); Mean Corpuscular Hemoglobin 26.5 pg (28.0-33.3); Mean Corpuscular Volume 83.2 fL (83.0-100.0); Mean Platelet Volume 10.1 fL (9.4-12.4); Monocytes # 0.6 K/mcL (0.0-1.3); Monocytes % 6.3 %; Platelet Count 259 K/mcL (140-400); Red Blood Count 4.11 M/mcL (4.19-5.50); Red Cell Distribution Width 15.3 % (11.5-14.5); Segmented Neutrophils % 68.9 %; White Blood Count 8.7 K/mcL (4.3-11.1)
[2021-11-09 02:07] LABS: Calcium 8.1 mg/dL (8.6-10.3); Potassium 3.6 mEq/L (3.5-5.1)
[2021-11-09] MEDS: *HR* Heparin 5,000 UNIT/ML VIAL SQ SCH ×3 (06:29→21:29)
[2021-11-09] MEDS: Ampicillin/Sulbactam 3,000 MG in 0.9 % Sodium Chloride Mini Bag 100 ML IVPB SCH ×3 (06:29→21:28)
[2021-11-09] MEDS ORDERED: Insulin DETEMIR 100 UNIT/ML X5UNITS SUBQ SCH (09:00)
[2021-11-09] MEDS: Insulin LISPRO 300 UNITS/3 ML VIAL SUBQ SCH ×4 (09:51→21:29)
[2021-11-09] MEDS: Lactobacillus 1 EACH CAP.SPRINK PO SCH ×2 (09:51→21:28)
[2021-11-09] MEDS: *HR* HYDROcodone/Acet 5/325 mg TABLET PO PRN ×2 (10:03→18:35)
[2021-11-09 10:07] LABS: Estimated Average Glucose 283 mg/dl; Hemoglobin A1C 11.5 %
[2021-11-09] MEDS: D5% in 0.45% NACL w KCl 20 MEQ/1,000 ML MLS IVC SCH (11:55)
[2021-11-09] MEDS: DAPTOmycin 600 MG in 0.9 % Sodium Chloride 100 ML IVPB SCH (14:33)
[2021-11-09] MEDS: Pregabalin 50 MG CAPSULE PO SCH ×2 (14:34→21:28)
[2021-11-09] MEDS: Budesonide/Formoterol 160/4.5 1 PUFF INH IH SCH (20:14)
[2021-11-09] MEDS ORDERED: Ampicillin/Sulbactam 3,000 MG in 0.9 % Sodium Chloride Mini Bag 100 ML IVPB SCH (23:00)
[2021-11-10] MEDS: *HR* HYDROcodone/Acet 5/325 mg TABLET PO PRN ×2 (00:46→18:57)
[2021-11-10] MEDS: Ampicillin/Sulbactam 3,000 MG in 0.9 % Sodium Chloride Mini Bag 100 ML IVPB SCH ×4 (03:04→20:50)
[2021-11-10 04:42] LABS: Basophils # 0.1 K/mcL (0.0-0.2); Basophils % 0.5 %; Eosinophils # 0.3 K/mcL (0.0-0.6); Eosinophils % 2.6 %; Hematocrit 32.4 % (37.5-50.1); Immature Granulocytes % 0.5 % (0-4); Lymphocytes # 1.8 K/mcL (0.6-4.6); Lymphocytes % 19.5 %; Mean Corpuscular HGB Conc 30.9 g/dL (31.6-35.5); Mean Corpuscular Hemoglobin 26.1 pg (28.0-33.3); Mean Corpuscular Volume 84.6 fL (83.0-100.0); Mean Platelet Volume 10.1 fL (9.4-12.4); Monocytes # 0.6 K/mcL (0.0-1.3); Monocytes % 6.2 %; Neutrophils # 6.7 K/mcL (1.6-8.9); Platelet Count 258 K/mcL (140-400); Red Blood Count 3.83 M/mcL (4.19-5.50); Red Cell Distribution Width 15.6 % (11.5-14.5); Segmented Neutrophils % 70.7 %; White Blood Count 9.5 K/mcL (4.3-11.1)
[2021-11-10 05:04] LABS: Calcium 8.5 mg/dL (8.6-10.3); Potassium 3.8 mEq/L (3.5-5.1)
[2021-11-10] MEDS: *HR* Heparin 5,000 UNIT/ML VIAL SQ SCH ×3 (05:56→20:56)
[2021-11-10] MEDS: Budesonide/Formoterol 160/4.5 1 PUFF INH IH SCH ×2 (07:36→20:18)
[2021-11-10] MEDS: Insulin LISPRO 300 UNITS/3 ML VIAL SUBQ SCH ×4 (08:24→20:53)
[2021-11-10] MEDS: amLODIPine 5 MG TABLET PO SCH (08:24)
[2021-11-10] MEDS: Pregabalin 50 MG CAPSULE PO SCH ×3 (08:24→20:50)
[2021-11-10] MEDS: Lactobacillus 1 EACH CAP.SPRINK PO SCH ×2 (08:24→20:50)
[2021-11-10] MEDS ORDERED: Insulin DETEMIR 100 UNIT/ML X5UNITS SUBQ SCH (09:00)
[2021-11-10] MEDS: D5% in 0.45% NACL w KCl 20 MEQ/1,000 ML MLS IVC SCH (09:49)
[2021-11-10] MEDS: DAPTOmycin 600 MG in 0.9 % Sodium Chloride 100 ML IVPB SCH (16:56)
[2021-11-11] MEDS: *HR* HYDROcodone/Acet 5/325 mg TABLET PO PRN ×3 (01:25→18:29)
[2021-11-11 03:03] LABS: Basophils # 0.1 K/mcL (0.0-0.2); Basophils % 0.5 %; Eosinophils # 0.2 K/mcL (0.0-0.6); Eosinophils % 2.3 %; Hematocrit 34.4 % (37.5-50.1); Hemoglobin 10.6 g/dL (12.9-16.9); Immature Granulocytes % 0.7 % (0-4); Lymphocytes # 1.9 K/mcL (0.6-4.6); Lymphocytes % 19.5 %; Mean Corpuscular HGB Conc 30.8 g/dL (31.6-35.5); Mean Corpuscular Hemoglobin 26.4 pg (28.0-33.3); Mean Corpuscular Volume 85.8 fL (83.0-100.0); Mean Platelet Volume 9.9 fL (9.4-12.4); Monocytes # 0.5 K/mcL (0.0-1.3); Monocytes % 5.3 %; Platelet Count 270 K/mcL (140-400); Red Blood Count 4.01 M/mcL (4.19-5.50); Red Cell Distribution Width 15.8 % (11.5-14.5); Segmented Neutrophils % 71.7 %; White Blood Count 9.8 K/mcL (4.3-11.1)
[2021-11-11 03:22] LABS: Calcium 8.5 mg/dL (8.6-10.3); Potassium 3.9 mEq/L (3.5-5.1)
[2021-11-11] MEDS: Ampicillin/Sulbactam 3,000 MG in 0.9 % Sodium Chloride Mini Bag 100 ML IVPB SCH ×4 (03:50→20:52)
[2021-11-11] MEDS: *HR* Heparin 5,000 UNIT/ML VIAL SQ SCH ×3 (06:12→21:07)
[2021-11-11] MEDS: Budesonide/Formoterol 160/4.5 1 PUFF INH IH SCH ×2 (07:59→20:03)
[2021-11-11] MEDS: Insulin LISPRO 300 UNITS/3 ML VIAL SUBQ SCH ×6 (08:19→21:12)
[2021-11-11] MEDS: Lactobacillus 1 EACH CAP.SPRINK PO SCH ×2 (08:20→20:51)
[2021-11-11] MEDS: Pregabalin 50 MG CAPSULE PO SCH ×3 (08:20→20:51)
[2021-11-11] MEDS: amLODIPine 5 MG TABLET PO SCH (08:20)
[2021-11-11] MEDS ORDERED: Insulin DETEMIR 100 UNIT/ML X5UNITS SUBQ SCH (09:00)
[2021-11-11] MEDS: DAPTOmycin 600 MG in 0.9 % Sodium Chloride 100 ML IVPB SCH (16:23)
[2021-11-12 01:47] LABS: Basophils # 0.1 K/mcL (0.0-0.2); Basophils % 0.7 %; Eosinophils # 0.3 K/mcL (0.0-0.6); Eosinophils % 2.5 %; Hematocrit 32.8 % (37.5-50.1); Hemoglobin 10.1 g/dL (12.9-16.9); Immature Granulocytes % 0.8 % (0-4); Lymphocytes # 1.8 K/mcL (0.6-4.6); Lymphocytes % 17.4 %; Mean Corpuscular HGB Conc 30.8 g/dL (31.6-35.5); Mean Corpuscular Hemoglobin 26.6 pg (28.0-33.3); Mean Corpuscular Volume 86.5 fL (83.0-100.0); Mean Platelet Volume 9.8 fL (9.4-12.4); Monocytes # 0.6 K/mcL (0.0-1.3); Monocytes % 5.6 %; Neutrophils # 7.7 K/mcL (1.6-8.9); Platelet Count 266 K/mcL (140-400); Red Blood Count 3.79 M/mcL (4.19-5.50); Red Cell Distribution Width 15.9 % (11.5-14.5); White Blood Count 10.5 K/mcL (4.3-11.1)
[2021-11-12 02:10] LABS: Calcium 8.5 mg/dL (8.6-10.3); Potassium 4.4 mEq/L (3.5-5.1)
[2021-11-12] MEDS: Ampicillin/Sulbactam 3,000 MG in 0.9 % Sodium Chloride Mini Bag 100 ML IVPB SCH ×2 (02:58→08:12)
[2021-11-12 04:39] VITALS: TEMP 98
[2021-11-12] MEDS: *HR* Heparin 5,000 UNIT/ML VIAL SQ SCH (06:03)
[2021-11-12] MEDS ORDERED: Insulin LISPRO 300 UNITS/3 ML VIAL SUBQ SCH (07:30)
[2021-11-12 07:38] VITALS: BP 146/89; PULSE 81; O2SAT 97
[2021-11-12] MEDS: Insulin LISPRO 300 UNITS/3 ML VIAL SUBQ SCH (08:09)
[2021-11-12] MEDS: Lactobacillus 1 EACH CAP.SPRINK PO SCH (08:11)
[2021-11-12] MEDS: amLODIPine 5 MG TABLET PO SCH (08:11)
[2021-11-12] MEDS: Pregabalin 50 MG CAPSULE PO SCH (08:11)
[2021-11-12] MEDS ORDERED: Insulin DETEMIR 100 UNIT/ML X5UNITS SUBQ SCH ×2 (09:00)
[2021-11-12] MEDS: Budesonide/Formoterol 160/4.5 1 PUFF INH IH SCH (10:40)
== END 2021-11-12 11:00 | disposition home or self-care (01) | DRG 603 ==
LOC: 3ANU 13:34 → EMEROOARM 13:34 → SUATTDRO 18:14 → 3ANU 19:44 → SUATTDRO 11-09 13:50
PROVIDERS: ADMIT Hospitalist; ATTEND General Practice